=== PATIENT | female | born 1950 | race American Indian/Alaskan Native ===

== ENCOUNTER 2019-12-19 07:56 | Day surgery (SDC) | payer MEDICARE ==
[2019-12-19 09:00] VITALS: BP 130/82
[2019-12-19] MEDS ORDERED: SODIUM CHLORIDE 0.9% 500 ML 500 ML IV SCH (09:00)
[2019-12-19 09:14] LABS: Basophils # (Auto) 0.1 K/mm3 (0.0-0.1); Basophils % (Auto) 1.1 % (0.0-1.8); Eosinophils # (Auto) 0.1 K/mm3 (0.0-0.4); Eosinophils % (Auto) 2.6 % (0.0-4.3); Hematocrit 34.2 % (30.3-42.9); Hemoglobin 11.3 gm/dl (10.1-14.3); Lymphocytes # (Auto) 1.1 K/mm3 (1.2-5.4); Mean Corpuscular HGB Conc 33 % (30-34); Mean Corpuscular Volume 86 fl (79-97); Monocytes # (Auto) 0.4 K/mm3 (0.0-0.8); Monocytes % (Auto) 7.9 % (0.0-7.3); Platelet Count 163 K/mm3 (140-440); Red Blood Count 3.97 M/mm3 (3.65-5.03); Red Cell Distribution Width 22.1 % (13.2-15.2)
[2019-12-19 09:42] LABS: INR 0.93 (0.87-1.13)
[2019-12-19 09:43] LABS: Partial Thromboplastin Time 27.2 Sec. (24.2-36.6)
[2019-12-19 10:05] LABS: Calcium 8.8 mg/dL (8.4-10.2)
[2019-12-19] MEDS ORDERED: ONDANSETRON 4 MG/2 ML INJ IV PRN (12:08)
[2019-12-19] MEDS ORDERED: ACETAMINOPHEN 325 MG TAB PO PRN (12:08)
[2019-12-19] MEDS ORDERED: ALBUTEROL 2.5 MG/3 ML NEBU IH PRN (12:08)
--- NOTE | 2019-12-19 12:12 | Short Stay Summary ---
Short Stay Documentation Date of service: 12/19/19 Narrative H&P: 69 year old female with ESRD and breast cancer with port for chemotherapy no longer needs port. Plan for port removal. - History Principal diagnosis: Breast cancer, ESRD H&P: obtained from office - Allergies and Medications Current Medications: Allergies No Known Allergies Allergy (Unverified 12/19/19 08:47) Home Medications Medication Instructions Recorded Confirmed Last Taken Type Aspirin EC [Halfprin EC] 81 mg PO DAILY 12/19/19 12/19/19 12/18/19 History 81 mg Clopidogrel [Plavix] 75 mg PO DAILY 12/19/19 12/19/19 12/18/19 History 75 mg Labetalol 100mg TAB 100 mg PO DAILY 12/19/19 12/19/19 12/18/19 History 100 mg Metoprolol Succinate [Toprol Xl] 100 mg PO DAILY 12/19/19 12/19/19 12/18/19 History 100 mg Norvasc 10 mg PO DAILY 12/19/19 12/19/19 12/18/19 History 10 mg Pentoxifylline 400 mg PO DAILY 12/19/19 12/19/19 12/18/19 History 400 mg Active Medications Acetaminophen (Tylenol) 650 mg PO Q4H PRN PRN Reason: Pain MILD(1-3)/Fever >100.5/BECKWITH Albuterol (Proventil) 2.5 mg IH Q4HRT PRN PRN Reason: Shortness Of Breath Sodium Chloride (Nacl 0.9% 500 Ml) 500 mls @ 50 mls/hr IV DIRECT YEINFER Last Admin: 12/19/19 09:57 Dose: 50 mls/hr Documented by: Ondansetron HCl (Zofran) 4 mg IV Q8H PRN PRN Reason: Nausea And Vomiting Sodium Chloride (Sodium Chloride Flush Syringe 10 Ml) 10 ml IV BID YENIFER Sodium Chloride (Sodium Chloride Flush Syringe 10 Ml) 10 ml IV PRN PRN PRN Reason: LINE FLUSH - Physical exam General appearance: no acute distress Lungs: Normal air movement Gastrointestinal: normal - Hospital course Hospital course: K came back hemolyzed. K then came back k7.0. Then came back 6.4. Discussed with patient, Dr. Tidwell, and Dr. Huizar of hospitalist service and recommended inpatient dialysis. Patient does not want to become inpatient and discussed this with outpatient dialysis center who will perform dialysis on her. Discussed risks, benefits, and alternatives of inpatient vs outpatient dialysis with hyperkalemia. Patient wants to have outpatient dialysis. - Disposition Condition at discharge: Stable Disposition: DC-01 TO HOME OR SELFCARE - Discharge Diagnoses (1) Breast cancer Status: Acute (2) ESRD (end stage renal disease) Status: Acute Short Stay Discharge Plan Activity: advance as tolerated Weight Bearing Status: Weight Bear as Tolerated Diet: renal Follow up with: LIONEL TERRELL JR, MD [Primary Care Provider] - 7 Days
== END 2019-12-19 14:10 | disposition home or self-care (01) ==
LOC: CATHLABREC 07:56 → UNDOADMIN 12:01 → 4A 12:01 → CATHLABREC 14:10
PROVIDERS: ATTEND Radiology Diagnostic Radiology
DX: C50.919 Malignant neoplasm of unspecified site of unspecified female breast (principal); I12.0 Hypertensive chronic kidney disease with stage 5 chronic kidney disease or end stage renal disease; E11.22 Type 2 diabetes mellitus with diabetic chronic kidney disease; N18.6 End stage renal disease; I70.245 Atherosclerosis of native arteries of left leg with ulceration of other part of foot; Z53.8 Procedure and treatment not carried out for other reasons; I70.213 Atherosclerosis of native arteries of extremities with intermittent claudication, bilateral legs; Z87.891 Personal history of nicotine dependence; Z72.89 Other problems related to lifestyle; Z80.8 Family history of malignant neoplasm of other organs or systems; Z79.899 Other long term (current) drug therapy; Z79.82 Long term (current) use of aspirin; Z99.2 Dependence on renal dialysis; Z98.890 Other specified postprocedural states; Z82.49 Family history of ischemic heart disease and other diseases of the circulatory system
CPT/HCPCS: 36415; 80048; 84132; 85025; 85610; 85730; J7040

== ENCOUNTER 2019-12-19 12:08 | Observation (INO) | payer MEDICARE ==
[2019-12-19] MEDS ORDERED: ALBUTEROL 2.5 MG/3 ML NEBU IH PRN (12:16)
[2019-12-19] MEDS ORDERED: ONDANSETRON 4 MG/2 ML INJ IV PRN (12:16)
[2019-12-19] MEDS ORDERED: ACETAMINOPHEN 325 MG TAB PO PRN (12:16)
--- NOTE | 2019-12-19 20:57 | History and Physical Report ---
History of Present Illness Date of admission: 12/19/19 12:08 Chief complaint: Needing dialysis History of present illness: 69 YO Female with ESRD on HD, Colon Cancer, Breast Cancer presented to [facility] for elective surgical intervention. Patient found to have elevated potassium postoperatively. Patient placed in observation status and admitted to medical floor for urgent dialysis. Patient has fever, chills, chest pain, palpitation, productive cough, recent ill contacts, or known exposure to COVID-19. Past History Past Medical History: cancer, ESRD Past Surgical History: Other (Dialysis access) Social history: . denies: smoking, alcohol abuse, prescription drug abuse Family history: diabetes, hypertension Medications and Allergies Allergies Allergy/AdvReac Type Severity Reaction Status Date / Time No Known Allergies Allergy Unverified 12/19/19 08:47 Home Medications Medication Instructions Recorded Confirmed Last Taken Type Aspirin EC [Halfprin EC] 81 mg PO DAILY 12/19/19 12/19/19 12/18/19 History 81 mg Clopidogrel [Plavix] 75 mg PO DAILY 12/19/19 12/19/19 12/18/19 History 75 mg Labetalol 100mg TAB 100 mg PO DAILY 12/19/19 12/19/19 12/18/19 History 100 mg Metoprolol Succinate [Toprol Xl] 100 mg PO DAILY 12/19/19 12/19/19 12/18/19 History 100 mg Norvasc 10 mg PO DAILY 12/19/19 12/19/19 12/18/19 History 10 mg Pentoxifylline 400 mg PO DAILY 12/19/19 12/19/19 12/18/19 History 400 mg Review of Systems Constitutional: no weight loss, no weight gain, no fever, no sweats Ears, nose, mouth and throat: no ear pain, no tinnitis, no nasal congestion, no nasal discharge Breasts: no change in shape, no swelling, no mass Cardiovascular: no orthopnea, no rapid/irregular heart beat, no edema, no lightheadedness Respiratory: no cough, no cough with sputum, no hemoptysis, no dyspnea on exertion Gastrointestinal: no nausea, no vomiting, no diarrhea, no change in bowel habits, no hematemesis, no coffee ground emesis Genitourinary Female: no pelvic pain, no flank pain, no menorrhagia, no dysuria, no urinary frequency Rectal: no pain, no incontinence, no bleeding Musculoskeletal: no neck stiffness, no neck pain, no arm numbness/tingling Integumentary: no rash, no pruritis, no redness, no sores, no wounds Neurological: no head injury, no paralysis, no weakness, no parathesias, no numbness, no syncope Psychiatric: no anxiety, no memory loss, no sleep disturbances Endocrine: no cold intolerance, no polyphagia, no excessive thirst, no polydipsia, no polyuria Exam - Constitutional General appearance: Present: no acute distress, well-nourished - EENT Eyes: Present: PERRL ENT: hearing intact, clear oral mucosa - Neck Neck: Present: supple, normal ROM - Respiratory Respiratory effort: normal Respiratory: bilateral: CTA - Cardiovascular Heart Sounds: Present: S1 & S2. Absent: rub, click - Extremities Extremities: pulses symmetrical, No edema Peripheral Pulses: within normal limits - Abdominal General gastrointestinal: Present: soft, non-tender, non-distended, normal bowel sounds Female genitourinary: Present: normal - Integumentary Integumentary: Present: clear, warm, dry - Musculoskeletal Musculoskeletal: gait normal, strength equal bilaterally - Psychiatric Psychiatric: appropriate mood/affect, intact judgment & insight - Neurologic Neurologic: CNII-XII intact, moves all extremities Assessment and Plan - Patient Problems (1) ESRD (end stage renal disease) Status: Acute Plan to address problem: Nephrology team notified, patient placed in observation status. Dialysis as per renal team, strict I's/O, monitor urine output every shift, daily weight, avoid nephrotoxic agents, dialysis as per renal team (2) Breast cancer Status: Acute Plan to address problem: Outpatient oncology follow-up.
== END 2019-12-19 14:00 | disposition home or self-care (01) ==
LOC: 4A 12:08
PROVIDERS: ADMIT Internal Medicine; ATTEND Internal Medicine
DX: N18.6 End stage renal disease (principal); C50.919 Malignant neoplasm of unspecified site of unspecified female breast; Z85.038 Personal history of other malignant neoplasm of large intestine; Z99.2 Dependence on renal dialysis; Z79.899 Other long term (current) drug therapy
CPT/HCPCS: G0378; G0379; 36415; 80048; 84132; 85025; 85610; 85730; J7040

== ENCOUNTER 2020-01-03 06:43 | Day surgery (SDC) | payer MEDICARE ==
[2020-01-03 07:46] LABS: Basophils % (Auto) 0.7 % (0.0-1.8); Eosinophils # (Auto) 0.1 K/mm3 (0.0-0.4); Eosinophils % (Auto) 2.5 % (0.0-4.3); Hematocrit 33.2 % (30.3-42.9); Hemoglobin 10.7 gm/dl (10.1-14.3); Lymphocytes % (Auto) 19.7 % (13.4-35.0); Mean Corpuscular HGB Conc 32 % (30-34); Mean Corpuscular Volume 85 fl (79-97); Monocytes # (Auto) 0.5 K/mm3 (0.0-0.8); Monocytes % (Auto) 9.6 % (0.0-7.3); Platelet Count 148 K/mm3 (140-440); Red Blood Count 3.92 M/mm3 (3.65-5.03)
[2020-01-03 07:53] LABS: INR 1.02 (0.87-1.13)
[2020-01-03 07:54] LABS: Partial Thromboplastin Time 27.8 Sec. (24.2-36.6)
[2020-01-03 07:57] LABS: Calcium 8.3 mg/dL (8.4-10.2)
[2020-01-03] MEDS ORDERED: SODIUM CHLORIDE 0.9% 500 ML 500 ML IV SCH (08:00)
[2020-01-03 08:08] LABS: Red Cell Distribution Width 22.3 % (13.2-15.2)
[2020-01-03] MEDS: LIDOCAINE 1%/EPINEPHRINE 1:100,000 VIAL (20 ML) INFILTRATI ONE ×4 (10:06→11:20)
[2020-01-03] MEDS ORDERED: HEPARIN/NS 5000 UNIT/500ML 500 ML IR ONE (10:15)
[2020-01-03] MEDS: fentaNYL 100 MCG/2 ML INJ ONE ×3 (10:47→11:05)
[2020-01-03] MEDS: MIDAZOLAM 2 MG/2 ML INJ ONE ×3 (10:47→11:05)
--- NOTE | 2020-01-03 10:51 | Short Stay Summary ---
Short Stay Documentation Date of service: 01/03/20 Narrative H&P: 69-year-old female with right sided subclavian port placement for breast cancer with end-stage renal disease and critical limb ischemia on aspirin and Plavix. Antiplatelet therapy cannot be discontinued for port removal. - History Principal diagnosis: Breast cancer, ESRD H&P: obtained from office Past Medical History: cancer, dialysis Past Surgical History: mastectomy, Other (angioplasties) Social history: no significant social history - Allergies and Medications Current Medications: Allergies statins Allergy (Severe, Uncoded 01/03/20 07:10) Unknown kidney failure Home Medications Medication Instructions Recorded Confirmed Last Taken Type Aspirin EC [Halfprin EC] 81 mg PO DAILY 12/19/19 01/03/20 01/02/20 History 81 mg Clopidogrel [Plavix] 75 mg PO DAILY 12/19/19 01/03/20 01/02/20 History 75 mg Labetalol 100mg TAB 100 mg PO DAILY 12/19/19 01/03/20 01/02/20 History 100 mg Metoprolol Succinate [Toprol Xl] 100 mg PO DAILY 12/19/19 01/03/20 01/02/20 History 100 mg Pentoxifylline 400 mg PO DAILY 12/19/19 01/03/20 01/02/20 History 400 mg Active Medications Sodium Chloride (Nacl 0.9% 500 Ml) 500 mls @ 50 mls/hr IV DIRECT YENIFER Last Admin: 01/03/20 10:48 Dose: 100 mls Documented by: - Physical exam General appearance: no acute distress Lungs: Normal air movement Heart: Regular rate Gastrointestinal: normal - Brief post op/procedure progress note Date of procedure: 01/03/20 Pre-op diagnosis: Breast cancer Post-op diagnosis: same Procedure: Fluoroscopic guided right subclavian vein port removal Conscious sedation for 33 minutes Anesthesia: local (w/ conscious sedation) Surgeon: MARGARITA MURILLO Estimated blood loss: minimal Condition: stable - Hospital course Hospital course: Patient tolerated the procedure well. No immediate postprocedural complications. - Disposition Condition at discharge: Stable Disposition: DC-01 TO HOME OR SELFCARE - Discharge Diagnoses (1) Breast cancer Status: Acute (2) ESRD (end stage renal disease) Status: Acute Short Stay Discharge Plan Activity: advance as tolerated Weight Bearing Status: Weight Bear as Tolerated (Do not lift more than 10 pounds with the right arm for the next week) Diet: regular Wound: keep clean and dry (Do not get the area wet for the next week. Sponge baths. Steri-Strips will fall off on their own once the wound is allowed to get wet again.) Follow up with: LIONEL TERRELL JR, MD [Primary Care Provider] - 7 Days
[2020-01-03] MEDS ORDERED: ceFAZolin/Water 2 GM/20 ML 2 GM/20 ML SYRINGE IV ONE (10:57)
[2020-01-03] MEDS ORDERED: MIDAZOLAM 2 MG/2 ML INJ ONE (11:02)
[2020-01-03] MEDS ORDERED: fentaNYL 100 MCG/2 ML INJ ONE (11:02)
[2020-01-03 12:31] VITALS: BP 166/83
--- NOTE | 2020-01-03 12:38 | Operative Report ---
Operative Report Operative Report: EXAM: Right subclavian vein port removal under fluoroscopic guidance Conscious sedation monitoring for 33 minutes. DATE: 01/03/2020 APPLICATION SUPPORT CONSULTANT: MARGARITA MURILLO MD INDICATION: Breast cancer, end of therapy, no further need for port. End-stage renal disease. MEDICATIONS: Please see nursing report for full details. CONTRAST: None PROCEDURE: Following an explanation of the risks, benefits, and alternatives; written informed consent was obtained. The patient was brought to the angiography suite and placed in supine position on the examination table. Patient was sedated and this was performed with continuous nursing supervision and continuous cardiopulmonary monitoring. Area around the port was prepped and draped in a sterile fashion. The port site was then anesthetized with local anesthetic. 15 blade was used to make a 2.5 centimeter incision adjacent to the existing port healed incision. Curved hemostats were used to slowly separate the site and expose the port. As this was done, hemostasis was achieved with the use of compression and electrocautery. The port tubing was expose the tubing was clamped. The tubing was then freed and completely extracted under fluoroscopic guidance. Pressure was held at the prior venotomy sites after tubing removal until hemostasis was achieved. Securing sutures were cut and the port was then removed intact. The area was then evaluated and washed with sterile saline. Hemostasis was achieved with manual compression and electrocautery. The site was then closed in 2 layers with interrupted 3-0 Vicryl sutures and a running 4-0 Vicryl subcuticular suture. Dermabond was applied. Steri-Strips were applied. Sterile dressing was then applied. The patient tolerated the procedure well. There were no immediate postprocedural complications. FINDINGS: Successful removal of a right subclavian vein port. Alarm Service Technician radiograph demonstrates a intact port. Post procedural radiograph demonstrates successful port removal without residual tubing. IMPRESSION: Successful removal of a right subclavian vein port under fluoroscopic guidance.
== END 2020-01-03 13:15 | disposition home or self-care (01) ==
LOC: CATHLABREC 06:43
PROVIDERS: ATTEND Radiology Diagnostic Radiology
DX: Z45.2 Encounter for adjustment and management of vascular access device (principal); C50.919 Malignant neoplasm of unspecified site of unspecified female breast; I12.0 Hypertensive chronic kidney disease with stage 5 chronic kidney disease or end stage renal disease; E11.22 Type 2 diabetes mellitus with diabetic chronic kidney disease; N18.6 End stage renal disease; I70.245 Atherosclerosis of native arteries of left leg with ulceration of other part of foot; I70.213 Atherosclerosis of native arteries of extremities with intermittent claudication, bilateral legs; Z90.49 Acquired absence of other specified parts of digestive tract; Z98.890 Other specified postprocedural states; K21.9 Gastro-esophageal reflux disease without esophagitis; Z90.710 Acquired absence of both cervix and uterus; Z99.2 Dependence on renal dialysis
CPT/HCPCS: 36415; 36590; 77001; 80048; 85025; 85610; 85730; 99156; 99157; J0690; J1644; J2250; J3010; J7040

== ENCOUNTER 2020-10-16 19:41 | Inpatient (IN) | payer MEDICARE ==
--- NOTE | 2020-10-17 00:12 | XRay Report ---
CHEST 2 VIEWS INDICATION / CLINICAL INFORMATION: dyspnea. COMPARISON: None available. FINDINGS: SUPPORT DEVICES: None. HEART / MEDIASTINUM: Stable cardiomegaly LUNGS / PLEURA: Moderate increased interstitial/parenchymal disease with small left pleural effusion. No pneumothorax. ADDITIONAL FINDINGS: No significant additional findings. IMPRESSION: 1. Bilateral proximal/interstitial disease could represent CHF and/or pneumonia. Clinical correlation and follow-up chest x-ray recommended Signer Name: Marlon Christianson MD Signed: 10/17/2020 12:07 AM Workstation Name: [id number]
[2020-10-17 00:35] LABS: Hematocrit 26.7 % (30.3-42.9); Hemoglobin 8.5 gm/dl (10.1-14.3); Mean Corpuscular HGB Conc 32 % (30-34); Mean Corpuscular Volume 86 fl (79-97); Platelet Count 157 K/mm3 (140-440); Red Blood Count 3.11 M/mm3 (3.65-5.03)
[2020-10-17 00:47] LABS: INR 1.23 (0.87-1.13)
[2020-10-17 01:06] LABS: Red Cell Distribution Width 28.2 % (13.2-15.2)
[2020-10-17 01:12] LABS: Calcium 9.6 mg/dL (8.4-10.2)
--- NOTE | 2020-10-17 01:53 | Emergency Department Report ---
ED General Adult HPI - General Chief complaint: Medical Clearance Stated complaint: MISSED DIALYSIS PUI?: Yes Time Seen by Provider: 10/17/20 01:52 Source: patient, RN notes reviewed, old records reviewed Mode of arrival: Ambulatory Limitations: Altered Mental Status, Physical Limitation - History of Present Illness Initial comments: The patient was evaluated in the emergency department for symptoms described in the history of present illness. He/she was evaluated in the context of the global COVID-19 pandemic, which necessitated consideration that the patient might be at risk for infection with the virus that causes COVID-19. Institutional protocols and algorithms that pertain to the evaluation of patients at risk for COVID-19 are in a state of rapid change based on information released by regulatory bodies including the CDC and federal and state organizations. These policies and algorithms were followed during the patient's care in the emergency department. Please note that these policies, procedures and recommendations changed on a rapid basis. During the entire history and physical examination, I had on complete personal protective equipment. Nephrology: Dr. Tidwell The patient is a 69-year-old female. According to enclosed paperwork, she was diagnosed with COVID-19 at the end of August. Apparently she has been hospitalized at a few institutions (not certain which institutions), and has subsequently missed a few dialysis sessions. As per her manager cardiology Dr. Tidwell, the patient has been confused, and was referred to the emergency room for evaluation for need for hemodialysis, as well as for confusion. The patient denies physical pain. She is not sure of the day. She thinks she is due for dialysis today. She denies headache, neck pain, chest pain, abdominal pain. She has chronic shortness of breath. She denies urinary symptoms. She denies vomiting blood or defecating blood. Patient is somewhat confused and disorganized, and is a poor historian, has difficulty describing the qualitative nature of her symptoms, exacerbating factors, relieving factors or aggravating factors. Her last known well time is not explicitly known at this time -: unknown - Related Data Home Medications Medication Instructions Recorded Confirmed Last Taken Aspirin EC [Halfprin EC] 81 mg PO DAILY 12/19/19 01/03/20 01/02/20 81 mg Clopidogrel [Plavix] 75 mg PO DAILY 12/19/19 01/03/20 01/02/20 75 mg Labetalol 100mg TAB 100 mg PO DAILY 12/19/19 01/03/20 01/02/20 100 mg Metoprolol Succinate [Toprol Xl] 100 mg PO DAILY 12/19/19 01/03/20 01/02/20 100 mg Pentoxifylline 400 mg PO DAILY 12/19/19 01/03/20 01/02/20 400 mg Allergies Allergy/AdvReac Type Severity Reaction Status Date / Time statins Allergy Severe Unknown Uncoded 10/16/20 22:30 ED Review of Systems ROS: Stated complaint: MISSED DIALYSIS Other details as noted in HPI Comment: Unobtainable due to pts medical conditions Constitutional: weakness Respiratory: shortness of breath Cardiovascular: denies: chest pain Gastrointestinal: denies: abdominal pain Neurological: confusion ED Past Medical Hx - Past Medical History Previous Medical History?: Yes Hx Hypertension: Yes Hx Diabetes: Yes Hx GERD: Yes Hx Renal Disease: Yes - Surgical History Past Surgical History?: Yes Hx Cholecystectomy: Yes Hx Breast Surgery: Yes Additional Surgical History: Right Arm Fistula - Social History Smoking Status: Never Smoker Substance Use Type: None - Medications Home Medications: Home Medications Medication Instructions Recorded Confirmed Last Taken Type Aspirin EC [Halfprin EC] 81 mg PO DAILY 12/19/19 01/03/20 01/02/20 History 81 mg Clopidogrel [Plavix] 75 mg PO DAILY 12/19/19 01/03/20 01/02/20 History 75 mg Labetalol 100mg TAB 100 mg PO DAILY 12/19/19 01/03/20 01/02/20 History 100 mg Metoprolol Succinate [Toprol Xl] 100 mg PO DAILY 12/19/19 01/03/20 01/02/20 History 100 mg Pentoxifylline 400 mg PO DAILY 12/19/19 01/03/20 01/02/20 History 400 mg ED Physical Exam - General Limitations: Altered Mental Status General appearance: in no apparent distress - Head Head exam: Present: atraumatic, normocephalic - Eye Eye exam: Present: normal appearance, EOMI. Absent: nystagmus - ENT ENT exam: Present: normal exam, normal orophraynx, mucous membranes moist, normal external ear exam - Neck Neck exam: Present: normal inspection, full ROM. Absent: tenderness, meningismus - Respiratory Respiratory exam: Present: other (Pulmonary auscultation not performed secondary to lack of disposable stethoscope). Absent: stridor - Cardiovascular Cardiovascular Exam: Present: tachycardia (Noted on nuisance wildlife trapper), other (Cardiac auscultation not performed secondary to lack of disposable stethoscope) - GI/Abdominal GI/Abdominal exam: Present: soft. Absent: distended, tenderness, guarding, rebound, rigid, pulsatile mass - Extremities Exam Extremities exam: Present: normal inspection (Right upper extremity fistula noted, appropriate thrill, no tenderness, without redness, pus or streaking), full ROM, pedal edema (1-2+ edema in the bilateral lower extremities), other (2+ pulses noted in the bilateral upper and lower extremities. There is no palpable cord. negative Homans sign. Muscular compartments are soft. The pelvis is stable.). Absent: calf tenderness - Back Exam Back exam: Present: normal inspection, full ROM. Absent: tenderness, CVA tenderness (R), CVA tenderness (L), paraspinal tenderness, vertebral tenderness - Neurological Exam Neurological exam: Present: altered (Patient is awake to name. She knows that she is in the hospital. She does not know the day of the week), other (No fa cial droop. Tongue midline. Extraocular movements intact bilaterally. Facial sensation intact to light touch in V1, V2, V3 distribution bilaterally. 5 and a 5 strength in 4 extremities. Sensation intact to light touch in 4 extremities.) - Psychiatric Psychiatric exam: Present: anxious - Skin Skin exam: Present: warm, dry, intact, normal color. Absent: rash ED Course Vital Signs 10/16/20 10/17/20 10/17/20 22:25 04:24 05:09 Temperature 98.2 F Pulse Rate 114 H 109 H Pulse Rate [ 92 H Bilateral Throughout] Respiratory 18 17 Rate Respiratory 16 Rate [Bilateral Throughout] Blood Pressure Blood Pressure 105/63 129/75 [Left] O2 Sat by Pulse 95 99 Oximetry O2 Sat by Pulse Oximetry [ Bilateral Throughout] 10/17/20 10/17/20 10/17/20 05:12 06:10 09:17 Temperature Pulse Rate 109 H 98 H 99 H Pulse Rate [ Bilateral Throughout] Respiratory 17 19 Rate Respiratory Rate [Bilateral Throughout] Blood Pressure 128/87 Blood Pressure 107/69 134/77 [Left] O2 Sat by Pulse 97 99 Oximetry O2 Sat by Pulse Oximetry [ Bilateral Throughout] 08/18/21 08/18/21 08/18/21 12:08 12:12 12:30 Temperature 97.9 F Pulse Rate 94 H 108 H 108 H Pulse Rate [ Bilateral Throughout] Respiratory 30 H Rate Respiratory Rate [Bilateral Throughout] Blood Pressure 105/69 132/77 151/89 Blood Pressure [Left] O2 Sat by Pulse Oximetry O2 Sat by Pulse 98 Oximetry [ Bilateral Throughout] 10/17/20 10/17/20 10/17/20 12:31 12:41 12:45 Temperature Pulse Rate 108 H Pulse Rate [ Bilateral Throughout] Respiratory Rate Respiratory Rate [Bilateral Throughout] Blood Pressure 132/77 151/89 157/79 Blood Pressure [Left] O2 Sat by Pulse 96 95 Oximetry O2 Sat by Pulse Oximetry [ Bilateral Throughout] 10/17/20 10/17/20 10/17/20 12:51 13:00 13:01 Temperature Pulse Rate 109 H 112 H Pulse Rate [ Bilateral Throughout] Respiratory 17 Rate Respiratory Rate [Bilateral Throughout] Blood Pressure 157/79 148/79 148/79 Blood Pressure [Left] O2 Sat by Pulse 94 97 Oximetry O2 Sat by Pulse Oximetry [ Bilateral Throughout] 10/17/20 10/17/20 10/17/20 13:11 13:15 13:21 Temperature Pulse Rate 123 H 111 H 113 H Pulse Rate [ Bilateral Throughout] Respiratory 18 13 Rate Respiratory Rate [Bilateral Throughout] Blood Pressure 124/79 124/79 124/79 Blood Pressure [Left] O2 Sat by Pulse 95 97 Oximetry O2 Sat by Pulse Oximetry [ Bilateral Throughout] 10/17/20 10/17/20 10/17/20 13:24 13:30 13:31 Temperature Pulse Rate 102 H 110 H 113 H Pulse Rate [ Bilateral Throughout] Respiratory 19 22 Rate Respiratory Rate [Bilateral Throughout] Blood Pressure 135/87 135/87 Blood Pressure 135/87 [Left] O2 Sat by Pulse 96 94 Oximetry O2 Sat by Pulse Oximetry [ Bilateral Throughout] 10/17/20 10/17/20 10/17/20 13:41 13:45 13:51 Temperature Pulse Rate 110 H 114 H 116 H Pulse Rate [ Bilateral Throughout] Respiratory 23 20 Rate Respiratory Rate [Bilateral Throughout] Blood Pressure 135/87 159/86 135/87 Blood Pressure [Left] O2 Sat by Pulse 94 95 Oximetry O2 Sat by Pulse Oximetry [ Bilateral Throughout] 10/17/20 10/17/20 10/17/20 14:00 14:01 14:11 Temperature Pulse Rate 110 H 127 H 114 H Pulse Rate [ Bilateral Throughout] Respiratory 18 18 Rate Respiratory Rate [Bilateral Throughout] Blood Pressure 138/108 159/86 138/108 Blood Pressure [Left] O2 Sat by Pulse 95 94 Oximetry O2 Sat by Pulse Oximetry [ Bilateral Throughout] 10/17/20 10/17/20 10/17/20 14:15 14:21 14:30 Temperature Pulse Rate 114 H 113 H 113 H Pulse Rate [ Bilateral Throughout] Respiratory 21 Rate Respiratory Rate [Bilateral Throughout] Blood Pressure 151/103 138/108 135/107 Blood Pressure [Left] O2 Sat by Pulse 96 Oximetry O2 Sat by Pulse Oximetry [ Bilateral Throughout] 10/17/20 10/17/20 10/17/20 14:31 14:41 14:45 Temperature Pulse Rate 119 H 115 H 107 H Pulse Rate [ Bilateral Throughout] Respiratory 18 22 Rate Respiratory Rate [Bilateral Throughout] Blood Pressure 151/123 135/107 147/91 Blood Pressure [Left] O2 Sat by Pulse 96 Oximetry O2 Sat by Pulse Oximetry [ Bilateral Throughout] 10/17/20 10/17/20 10/17/20 14:51 15:00 15:02 Temperature 98.9 F Pulse Rate 113 H 119 H 116 H Pulse Rate [ Bilateral Throughout] Respiratory 15 20 Rate Respiratory Rate [Bilateral Throughout] Blood Pressure 147/91 157/101 157/101 Blood Pressure 157/101 [Left] O2 Sat by Pulse 96 Oximetry O2 Sat by Pulse Oximetry [ Bilateral Throughout] 10/17/20 10/17/20 10/17/20 15:10 15:21 15:25 Temperature 98.3 F Pulse Rate 124 H 113 H 105 H Pulse Rate [ Bilateral Throughout] Respiratory 20 13 18 Rate Respiratory Rate [Bilateral Throughout] Blood Pressure 157/101 157/97 119/61 Blood Pressure [Left] O2 Sat by Pulse 99 100 Oximetry O2 Sat by Pulse 98 Oximetry [ Bilateral Throughout] 10/17/20 10/17/20 10/17/20 15:31 15:41 15:51 Temperature Pulse Rate 121 H 116 H 118 H Pulse Rate [ Bilateral Throughout] Respiratory 19 18 17 Rate Respiratory Rate [Bilateral Throughout] Blood Pressure 119/61 125/78 125/78 Blood Pressure [Left] O2 Sat by Pulse 97 99 99 Oximetry O2 Sat by Pulse Oximetry [ Bilateral Throughout] 10/17/20 10/17/20 10/17/20 16:01 16:11 16:21 Temperature Pulse Rate 121 H 110 H 116 H Pulse Rate [ Bilateral Throughout] Respiratory 22 17 27 H Rate Respiratory Rate [Bilateral Throughout] Blood Pressure 129/79 132/81 132/81 Blood Pressure [Left] O2 Sat by Pulse 98 98 Oximetry O2 Sat by Pulse Oximetry [ Bilateral Throughout] 10/17/20 10/17/20 10/17/20 16:31 16:41 16:51 Temperature Pulse Rate 122 H 122 H Pulse Rate [ Bilateral Throughout] Respiratory 24 19 13 Rate Respiratory Rate [Bilateral Throughout] Blood Pressure 146/100 146/100 146/100 Blood Pressure [Left] O2 Sat by Pulse 100 95 Oximetry O2 Sat by Pulse Oximetry [ Bilateral Throughout] 10/17/20 10/17/20 10/17/20 17:01 17:11 17:20 Temperature Pulse Rate 120 H 117 H 116 H Pulse Rate [ Bilateral Throughout] Respiratory 21 16 15 Rate Respiratory Rate [Bilateral Throughout] Blood Pressure 122/95 119/69 119/69 Blood Pressure [Left] O2 Sat by Pulse 96 94 93 Oximetry O2 Sat by Pulse Oximetry [ Bilateral Throughout] - Reevaluation(s) Reevaluation #1: 10/17/20 04:27 Frontal diagnosis, including but not limited to: Pneumonia, urinary tract infec tion, COVID-19, azotemia, uremia, metabolic acidosis Assessment and plan: 69-year-old female with multiple acute issues. She is not received dialysis for a few days. Her potassium is over 6, she has azotemia, uremia and metabolic acidosis. She will be treated medically for her hyperkalemia. Contacted her manager cardiology, Dr. Tidwell, discussed history, physical, laboratory studies and imaging studies. He will arrange for dialysis in the morning. He agrees with the plan of care. She has a known diagnosis of COVID-19 from the end of August. Start on steroids, antibiotics empirically. Placed on isolation. Obtain CT scan of the brain, and appropriate laboratory studies to further evaluate encephalopathy. Also found to be in A. fib with RVR. Unknown if this is old or new. Start on unfractionated heparin, start on oral diltiazem, and give IV push x1. Reassess after diltiazem has been administered. Hospital physician, Dr. Ryan Quach to admit to [facility] Medical decision m[age]-year-old female with confusion, A. fib and RVR, last known well time is not known, COVID-19, pneumonia on x-ray, with hyperkalemia, azotemia, uremia, metabolic acidosis and encephalopathy, requires admission to the medical service for urgent hemodialysis, medical optimization for numerous acute and subacute medical conditions. 10/17/20 04:43 Elevated troponin is likely a type II troponin leak. 10/17/20 05:30 After 30 mg of diltiazem orally, and 10 mg intravenously, heart rate 95 to 105 bpm. Given end-stage renal disease, concern for COVID-19, 30 cc/kg bolus IV fluid contraindicated, especially given that patient does have some evidence of congestive heart failure on x-ray the chest. In addition, Covid patients may develop acute respiratory distress syndrome, and are typically ill served by aggressive fluid bolus. I will defer fluid management to the inpatient team, in my opinion, the patient has evidence of mild fluid overload, so we will withhold fluids at this time. Lactic acid of 3.0 reviewed and appreciated, I suspect that this is a type II lactic acidosis. ED Medical Decision Making - Lab Data Result diagrams: 10/19/20 04:51 10/19/20 04:51 Lab Results 10/16/20 10/16/20 10/16/20 Range/Units 23:58 23:58 23:58 WBC 3.5 L (4.5-11.0) K/mm3 RBC 3.11 L (3.65-5.03) M/mm3 Hgb 8.5 L (10.1-14.3) gm/dl Hct 26.7 L (30.3-42.9) % MCV 86 (79-97) fl MCH 27 L (28-32) pg MCHC 32 (30-34) % RDW 28.2 H (13.2-15.2) % Plt Count 157 (140-440) K/mm3 PT 16.1 H (12.2-14.9) Sec. INR 1.23 H (0.87-1.13) Sodium 144 (137-145) mmol/L Potassium 6.3 H* (3.6-5.0) mmol/L Chloride 99.2 (98-107) mmol/L Carbon Dioxide 26 (22-30) mmol/L Anion Gap 25 mmol/L BUN 73 H (7-17) mg/dL Creatinine 12.2 H (0.6-1.2) mg/dL Estimated GFR 4 ml/min BUN/Creatinine Ratio 6 % Glucose 187 H (65-100) mg/dL Calcium 9.6 (8.4-10.2) mg/dL Total Creatine Kinase 57 (30-135) units/L Troponin T 0.162 H* (0.00-0.029) ng/mL Vital Signs 10/16/20 22:25 Temperature 98.2 F Pulse Rate 114 H Respiratory 18 Rate Blood Pressure 105/63 [Left] O2 Sat by Pulse 95 Oximetry - EKG Data -: EKG Interpreted by [place] Rate: tachycardia - EKG Data 10/17/20 04:22 EKG interpreted at 03: 2 6 A. fib, rate 107 bpm. Normal axis, QTC prolonged, poor R wave progression. Abnormal EKG, not a STEMI, no prior for comparison at this time - Radiology Data Radiology results: report reviewed, image reviewed CHEST 2 VIEWS INDICATION / CLINICAL INFORMATION: dyspnea. COMPARISON: None available. FINDINGS: SUPPORT DEVICES: None. HEART / MEDIASTINUM: Stable cardiomegaly LUNGS / PLEURA: Moderate increased interstitial/parenchymal disease with small left pleural effusion. No pneumothorax. ADDITIONAL FINDINGS: No significant additional findings. IMPRESSION: 1. Bilateral proximal/interstitial disease could represent CHF and/or pneumonia. Clinical correlation and follow- up chest x-ray recommended Signer Name: Marlon Christianson MD Signed: 10/16/2020 11:07 PM [facility] [address] [place] [address] Cat Scan Report Signed Patient: RED NEGRON MR#: [id number] : 1950 Acct:[id number] Age/Sex: 69 / F ADM Date: 10/16/20 Loc: ED Attending Dr: Ordering Physician: DARIAN STEEL MD Date of Service: 10/17/20 Procedure(s): CT head/brain wo con Accession Number(s): [id number] cc: DARIAN STEEL MD CT HEAD WITHOUT CONTRAST INDICATION / CLINICAL INFORMATION: ams. TECHNIQUE: All CT scans at this location are performed using CT dose reduction for ALARA by means of automated exposure control. COMPARISON: None available. FINDINGS: HEMORRHAGE: None. EXTRA-AXIAL SPACES: Normal in size and morphology for the patient's age. VENTRICULAR SYSTEM: Normal in size and morphology for the patient's age. CEREBRAL PARENCHYMA: Mild to moderate periventricular and deep microangiopathy. Mild cerebral atrophy No significant abnormality. No acute territorial infarct. MIDLINE SHIFT OR HERNIATION: None. CEREBELLUM / BRAINSTEM: No significant abnormality. ORBITS: Normal as visualized. SOFT TISSUES of HEAD: No significant abnormality. CALVARIUM: No significant abnormality. PARANASAL SINUSES / MASTOID AIR CELLS: Normal as visualized. ADDITIONAL FINDINGS: Moderate vascular calcifications both cavernous carotid and vertebral arteries IMPRESSION: 1. No acute intracranial abnormality. 2. Mild microangiopathy and cerebral atrophy. Signer Name: Marlon Christianson MD Signed: 10/17/2020 3:22 AM Workstation Name: [id number] Transcribed By: TL Dictated By: Marlon Christianson MD Electronically Authenticated By: Marlon Christianson MD Signed Date/Time: 10/17/20321 DD/ 9 Critical Care Time: Yes Critical care time in (mins) excluding proc time.: 45 Critical care attestation.: If time is entered above; I have spent that time in minutes in the direct care of this critically ill patient, excluding procedure time. 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
[2020-10-17] MEDS ORDERED: SODIUM BICARB 8.4% 50 MEQ/50 ML SYRINGE IV ONE (02:01)
[2020-10-17] MEDS ORDERED: ALBUTEROL 2.5 MG/3 ML NEBU IH ONE (02:01)
[2020-10-17] MEDS ORDERED: DEXTROSE 50% IN WATER (25GM) 50 ML VIAL IV PRN (02:01)
[2020-10-17] MEDS ORDERED: INSULIN REGULAR, HUMAN 100 UNITS/1 ML IV ONE (02:01)
[2020-10-17] MEDS ORDERED: dexAMETHasone 4 MG/ML VIAL IV ONE (02:01)
[2020-10-17] MEDS ORDERED: DEXTROSE 50% IN WATER (25GM) 50 ML SYRINGE IV ONE (02:01)
[2020-10-17] MEDS ORDERED: cefTRIAXone/NS 1 GM/50 ML 1 GM/50 ML BAG IV ONE (02:01)
[2020-10-17] MEDS ORDERED: AZITHROMYCIN 250 MG TAB PO ONE (02:02)
[2020-10-17 02:51] LABS: Chol/HDL Ratio 2.89 %
--- NOTE | 2020-10-17 03:26 | Cat Scan Report ---
CT HEAD WITHOUT CONTRAST INDICATION / CLINICAL INFORMATION: ams. TECHNIQUE: All CT scans at this location are performed using CT dose reduction for ALARA by means of automated e xposure control. COMPARISON: None available. FINDINGS: HEMORRHAGE: None. EXTRA-AXIAL SPACES: Normal in size and morphology for the patient's age. VENTRICULAR SYSTEM: Normal in size and morphology for the patient's age. CEREBRAL PARENCHYMA: Mild to moderate periventricular and deep microangiopathy. Mild cerebral atrophy No significant abnormality. No acute territorial infarct. MIDLINE SHIFT OR HERNIATION: None. CEREBELLUM / BRAINSTEM: No significant abnormality. ORBITS: Normal as visualized. SOFT TISSUES of HEAD: No significant abnormality. CALVARIUM: No significant abnormality. PARANASAL SINUSES / MASTOID AIR CELLS: Normal as visualized. ADDITIONAL FINDINGS: Moderate vascular calcifications both cavernous carotid and vertebral arteries IMPRESSION: 1. No acute intracranial abnormality. 2. Mild microangiopathy and cerebral atrophy. Signer Name: Marlon Christianson MD Signed: 10/17/2020 3:22 AM Workstation Name: [id number]
[2020-10-17] MEDS ORDERED: SODIUM CHLORIDE 0.9% 100 ML IV PRN (03:32)
[2020-10-17] MEDS ORDERED: dilTIAZem 25 MG/5 ML INJ IV ONE (04:25)
[2020-10-17] MEDS ORDERED: dilTIAZem 30 MG TAB PO ONE (04:25)
[2020-10-17] MEDS ORDERED: HEPARIN 10,000 UNITS/10 ML VIAL IV PRN (04:25)
[2020-10-17] MEDS ORDERED: HEPARIN 10,000 UNITS/10 ML VIAL IV ONE (04:25)
[2020-10-17] MEDS ORDERED: ACETAMINOPHEN 325 MG TAB PO PRN (04:41)
[2020-10-17] MEDS ORDERED: ONDANSETRON 4 MG/2 ML INJ IV PRN (04:41)
[2020-10-17] MEDS ORDERED: MORPHINE 2 MG/1 ML INJ IV PRN (04:54)
[2020-10-17] MEDS ORDERED: MAGNESIUM HYDROXIDE (MOM) ORAL LIQD UDC PO PRN (04:54)
[2020-10-17] MEDS ORDERED: MORPHINE 4 MG/1 ML INJ IV PRN (04:54)
[2020-10-17] MEDS ORDERED: HEPARIN/ 0.45% NACL DRIP 25,000 UNIT/500 ML BAG IV SCH (05:00)
--- NOTE | 2020-10-17 05:05 | History and Physical Report ---
History of Present Illness Date of examination: 10/17/20 Date of admission: 10/17/2020 Chief complaint: Shortness of Breath History of present illness: 69-year-old -Armenian female with known history of end-stage renal disease on dialysis presents to the emergency room today with confusion. She was recently diagnosed with COVID-19 at the end of August and had been hospitalized at an outside facility and therefore missed some of her dialysis sessions. She was referred to the emergency room for evaluation of her confusion. Patient states that she feels she due for dialysis today. She denies any headache or dizziness, no diaphoresis, no nausea vomiting and no diarrhea. She has chronic shortness of breath, denies any cough, denies any hematuria or dysu kaylen, no bright red blood per rectum. Work-up in the emergency room today labs were significant for hyperkalemia of 6.3, lactic acid of 3.0, troponin of 0.162 and a BNP of 70,000. Patient was given insulin and glucose, calcium gluconate, albuterol sodium bicarb. For his hyperkalemia. Checks x-ray reveals bilateral proximal/interstitial disease which could represent CHF and or pneumonia. He developed left atrial fibrillation in the ER and was subsequently started on heparin drip and also given Cardizem injection. Terrazzo Tile Maker has been consulted by the ER physician for possible dialysis. Patient has been admitted with acute encephalopathy, hyperkalemia, end-stage renal disease needing dialysis, CHF versus pneumonia. Past History Past Medical History: diabetes, GERD, hypertension, renal failure Past Surgical History: cholecystectomy, Other (Right arm AV fistula placement, breast surgery) Social history: no significant social history Family history: no significant family history Medications and Allergies Allergies Allergy/AdvReac Type Severity Reaction Status Date / Time statins Allergy Severe Unknown Uncoded 10/16/20 22:30 Home Medications Medication Instructions Recorded Confirmed Last Taken Type Aspirin EC [Halfprin EC] 81 mg PO DAILY 12/19/19 01/03/20 01/02/20 History 81 mg Clopidogrel [Plavix] 75 mg PO DAILY 12/19/19 01/03/20 01/02/20 History 75 mg Labetalol 100mg TAB 100 mg PO DAILY 12/19/19 01/03/20 01/02/20 History 100 mg Metoprolol Succinate [Toprol Xl] 100 mg PO DAILY 12/19/19 01/03/2020 History 100 mg Pentoxifylline 400 mg PO DAILY 12/19/19 01/03/20 01/02/20 History 400 mg Active Meds: Active Medications Acetaminophen (Acetaminophen 325 Mg Tab) 650 mg PO Q4H PRN PRN Reason: Pain MILD(1-3)/Fever >100.5/BECKWITH Dextrose (Dextrose 50% In Water (25gm) 50 Ml Vial) 50 gm IV Q30MIN PRN; Hari col PRN Reason: Hypoglycemia Heparin Sodium (Porcine) (Heparin 10,000 Units/10 Ml Vial) 2,900 unit 40 unit/kg (2900 unit) IV Q6H PRN PRN Reason: Anti-Xa Assay < 0.1 units/ml Sodium Chloride (Nacl 0.9%) 100 mls @ 999 mls/hr IV ROSHNI PRN PRN Reason: Hypotension Heparin Sodium/Sodium Chloride (Heparin/ 0.45% Nacl-25,000 Unit/500 Ml) 25,000 unit in 500 mls @ 21 mls/hr IV TITR YENIFER; Protocol Ceftriaxone Sodium (Rocephin/Ns 2 Gm/100 Ml) 2 gm in 100 mls @ 200 mls/hr IV Q24H YENIFER; Protocol Azithromycin (Zithromax/Ns) 500 mg in 250 mls @ 250 mls/hr IV Q24H YENIFER; Protocol Magnesium Hydroxide (Magnesium Hydroxide (Mom) Oral Liqd Udc) 30 ml PO Q4H PRN PRN Reason: Constipation Morphine Sulfate (Morphine 2 Mg/1 Ml Inj) 2 mg IV Q4H PRN PRN Reason: Pain, Moderate (4-6) Morphine Sulfate (Morphine 4 Mg/1 Ml Inj) 4 mg IV Q4H PRN PRN Reason: Pain , Severe (7-10) Ondansetron HCl (Ondansetron 4 Mg/2 Ml Inj) 4 mg IV Q8H PRN PRN Reason: Nausea And Vomiting Sodium Chloride (Sodium Chloride 0.9% 10 Ml Flush Syringe) 10 ml IV BID YENIFER Sodium Chloride (Sodium Chloride 0.9% 10 Ml Flush Syringe) 10 ml IV PRN PRN PRN Reason: LINE FLUSH Review of Systems Constitutional: no fever, no chills Ears, nose, mouth and throat: no nasal congestion, no sore throat Cardiovascular: no chest pain, no palpitations Respiratory: shortness of breath, no cough Gastrointestinal: no abdominal pain, no nausea, no vomiting, no diarrhea Genitourinary Female: no pelvic pain, no flank pain, no hematuria Musculoskeletal: no neck pain, no low back pain Integumentary: no rash, no pruritis Neurological: confusion, no headaches Psychiatric: no anxiety, no depression Endocrine: no polydipsia, no polyuria, no nocturia Exam - Constitutional Vitals: Temp Pulse Resp BP Pulse Ox 98.2 F 109 H 17 129/75 99 10/16/20 22:25 10/17/20 04:24 10/17/20 04:24 10/17/20 04:24 10/17/20 04:24 General appearance: Present: no acute distress, well-nourished - EENT Eyes: Present: PERRL, EOM intact. Absent: scleral icterus ENT: hearing intact, clear oral mucosa, dentition normal - Neck Neck: Present: supple, normal ROM - Respiratory Respiratory effort: normal Respiratory: bilateral: rales - Cardiovascular Rhythm: irregularly irregular Heart Sounds: Present: S1 & S2. Absent: systolic murmur, diastolic murmur, rub, click - Extremities Extremities: no ischemia, pulses intact, pulses symmetrical, No edema, normal temperature, normal color, Full ROM Peripheral Pulses: within normal limits - Abdominal General gastrointestinal: Present: soft, non-tender, non-distended, normal bowel sounds. Absent: mass - Integumentary Integumentary: Present: clear, warm, dry - Musculoskeletal Musculoskeletal: strength equal bilaterally, other (Right upper arm AV fistula in place) - Psychiatric Psychiatric: appropriate mood/affect, intact judgment & insight, memory intact, cooperative - Neurologic Neurologic: CNII-XII intact, no focal deficits, moves all extremities HEART Score - HEART Score Troponin: Troponin T 0.162 ng/mL (0.00-0.029) H* 10/16/20 23:58 Results - Labs CBC & Chem 7: 10/16/20 23:58 10/16/20 23:58 Labs: Abnormal lab results 10/16/20 10/16/20 10/16/20 Range/Units 23:58 23:58 23:58 WBC 3.5 L (4.5-11.0) K/mm3 RBC 3.11 L (3.65-5.03) M/mm3 Hgb 8.5 L (10.1-14.3) gm/dl Hct 26.7 L (30.3-42.9) % MCH 27 L (28-32) pg RDW 28.2 H (13.2-15.2) % PT 16.1 H (12.2-14.9) Sec. INR 1.23 H (0.87-1.13) Potassium 6.3 H* (3.6-5.0) mmol/L BUN 73 H (7-17) mg/dL Creatinine 12.2 H (0.6-1.2) mg/dL Glucose 187 H (65-100) mg/dL POC Glucose (70-105) mg/dL Lactic Acid (0.7-2.0) mmol/L Troponin T 0.162 H* (0.00-0.029) ng/mL NT-Pro-B Natriuret Pep 79653 H (0-900) pg/mL LDL Cholesterol Direct 39 L (50-130) mg/dL HDL Cholesterol 37 L (40-59) mg/dL Salicylates (2.8-20.0) mg/dL Acetaminophen (10.0-30.0) ug/mL 10/17/20 10/17/20 10/17/20 Range/Units 02:48 03:50 03:50 WBC (4.5-11.0) K/mm3 RBC (3.65-5.03) M/mm3 Hgb (10.1-14.3) gm/dl Hct (30.3-42.9) % MCH (28-32) pg RDW (13.2-15.2) % PT (12.2-14.9) Sec. INR (0.87-1.13) Potassium (3.6-5.0) mmol/L BUN (7-17) mg/dL Creatinine (0.6-1.2) mg/dL Glucose (65-100) mg/dL POC Glucose 169 H (70-105) mg/dL Lactic Acid 3.00 H* (0.7-2.0) mmol/L Troponin T (0.00-0.029) ng/mL NT-Pro-B Natriuret Pep (0-900) pg/mL LDL Cholesterol Direct (50-130) mg/dL HDL Cholesterol (40-59) mg/dL Salicylates < 0.3 L (2.8-20.0) mg/dL Acetaminophen (10.0-30.0) ug/mL 10/17/20 Range/Units 03:50 WBC (4.5-11.0) K/mm3 RBC (3.65-5.03) M/mm3 Hgb (10.1-14.3) gm/dl Hct (30.3-42.9) % MCH (28-32) pg RDW (13.2-15.2) % PT (12.2-14.9) Sec. INR (0.87-1.13) Potassium (3.6-5.0) mmol/L BUN (7-17) mg/dL Creatinine (0.6-1.2) mg/dL Glucose (65-100) mg/dL POC Glucose (70-105) mg/dL Lactic Acid (0.7-2.0) mmol/L Troponin T (0.00-0.029) ng/mL NT-Pro-B Natriuret Pep (0-900) pg/mL LDL Cholesterol Direct (50-130) mg/dL HDL Cholesterol (40-59) mg/dL Salicylates (2.8-20.0) mg/dL Acetaminophen 5.0 L (10.0-30.0) ug/mL Assessment and Plan - Patient Problems (1) Acute encephalopathy Current Visit: Yes Status: Acute Plan to address problem: Etiology unclear. Possibly secondary to underlying infection versus uremia. Will monitor mental status. Patient has been started on empiric IV antibiotics and also will be scheduled for dialysis. (2) End-stage renal disease needing dialysis Current Visit: Yes Status: Acute Plan to address problem: Consult placed to nephrology for dialysis. (3) Atrial fibrillation with RVR Current Visit: Yes Status: Acute Plan to address problem: New onset. Patient placed on heparin drip. She has had a dose of IV Cardizem in the ER. Will monitor EKG. We will also schedule for echocardiogram. (4) Hyperkalemia Current Visit: Yes Status: Acute Plan to address problem: Patient has received insulin and glucose, albuterol, sodium bicarb We will monitor EKG and also monitor potassium levels. (5) DVT prophylaxis Current Visit: Yes Status: Acute Plan to address problem: Patient currently on anticoagulation with heparin (6) Full code status Current Visit: Yes Status: Acute Plan to address problem: Patient is full code.
--- NOTE | 2020-10-17 12:39 | Progress Note ---
Assessment and Plan Assessment and plan: -- Acute toxic metabolic encephalopathy/present on admission Current Visit: Yes Status: Acute Multifactorial, due to uremia, missed hemodialysis, fluid overload Electrolyte abnormalities like hyperkalemia Treat the underlying cause -- Hyperkalemia K6.3 on admission Current Visit: Yes Status: Acute Patient has received insulin and glucose, albuterol, sodium bicarb We will monitor EKG and also monitor potassium levels. Potassium level significantly improved --End-stage renal disease needing dialysis Current Visit: Yes Status: Acute Nephrology following Dialysis per schedule --Atrial fibrillation with RVR Current Visit: Yes Status: Acute New onset. Cardizem Heparin drip, will transition to Eliquis Follow, echocardiogram Cardiology consult if needed -- DVT prophylaxis Current Visit: Yes Status: Acute On heparin drip --Full code status Current Visit: Yes Status: Acute Patient is full code. Closely monitor the patient and adjust management as needed Plan of care reviewed with the patient and her nurse Bench Manager recommendations noted and appreciated Possible discharge in 1 to 2 days if stable History Interval history: I have seen and examined the patient at bedside today in ER awaiting bed assignment Patient's chart and medications reviewed Admitted with missed hemodialysis Patient is receiving dialysis at the bedside PUI, in isolation Awaiting COVID-19 test Vital signs noted Hospitalist Physical - Constitutional Vitals: Temp Pulse Resp BP Pulse Ox 98.2 F 108 H 19 151/89 99 10/16/20 22:25 10/17/20 12:30 10/17/20 09:17 10/17/20 12:30 10/17/20 09:17 General appearance: Present: no acute distress, well-nourished - EENT Eyes: Present: PERRL, EOM intact - Neck Neck: Present: supple, normal ROM - Respiratory Respiratory effort: normal Respiratory: bilateral: diminished, rales, negative: rhonchi, wheezing - Cardiovascular Rhythm: regular Heart Sounds: Present: S1 & S2 - Extremities Extremities: no ischemia, No edema - Abdominal General gastrointestinal: soft, non-tender, non-distended, normal bowel sounds - Integumentary Integumentary: Present: clear, warm - Psychiatric Psychiatric: appropriate mood/affect, cooperative, other (Confused at times) - Neurologic Neurologic: CNII-XII intact, moves all extremities HEART Score - HEART Score Troponin: Troponin T 0.162 ng/mL (0.00-0.029) H* 10/16/20 23:58 Results - Labs CBC & Chem 7: 10/16/20 23:58 10/17/20 15:46 Labs: Laboratory Last Values WBC 3.5 K/mm3 (4.5-11.0) L 10/16/20 23:58 RBC 3.11 M/mm3 (3.65-5.03) L 10/16/20 23:58 Hgb 8.5 gm/dl (10.1-14.3) L 10/16/20 23:58 Hct 26.7 % (30.3-42.9) L 10/16/20 23:58 MCV 86 fl (79-97) 10/16/20 23:58 MCH 27 pg (28-32) L 10/16/20 23:58 MCHC 32 % (30-34) 10/16/20 23:58 RDW 28.2 % (13.2-15.2) H 10/16/20 23:58 Plt Count 157 K/mm3 (140-440) 10/16/20 23:58 PT 16.1 Sec. (12.2-14.9) H 10/16/20 23:58 INR 1.23 (0.87-1.13) H 10/16/20 23:58 Sodium 144 mmol/L (137-145) 10/16/20 23:58 Potassium 6.3 mmol/L (3.6-5.0) H* 10/16/20 23:58 Chloride 99.2 mmol/L (98-107) 10/16/20 23:58 Carbon Dioxide 26 mmol/L (22-30) 10/16/20 23:58 Anion Gap 25 mmol/L 10/16/20 23:58 BUN 73 mg/dL (7-17) H 10/16/20 23:58 Creatinine 12.2 mg/dL (0.6-1.2) H 10/16/20 23:58 Estimated GFR 4 ml/min 10/16/20 23:58 BUN/Creatinine Ratio 6 % 10/16/20 23:58 Glucose 187 mg/dL (65-100) H 10/16/20 23:58 POC Glucose 169 mg/dL (70-105) H 10/17/20 02:48 Lactic Acid 3.00 mmol/L (0.7-2.0) H* 10/17/20 03:50 Calcium 9.6 mg/dL (8.4-10.2) 10/16/20 23:58 Total Creatine Kinase 57 units/L (30-135) 10/16/20 23:58 Troponin T 0.162 ng/mL (0.00-0.029) H* 10/16/20 23:58 NT-Pro-B Natriuret Pep 87141 pg/mL (0-900) H 10/16/20 23:58 Triglycerides 146 mg/dL (2-149) 10/16/20 23:58 Cholesterol 107 mg/dL (50-199) 10/16/20 23:58 LDL Cholesterol Direct 39 mg/dL (50-130) L 10/16/20 23:58 HDL Cholesterol 37 mg/dL (40-59) L 10/16/20 23:58 Cholesterol/HDL Ratio 2.89 % 10/16/20 23:58 TSH 2.940 mlU/mL (0.270-4.200) 10/17/20 03:50 Salicylates < 0.3 mg/dL (2.8-20.0) L 10/17/20 03:50 Acetaminophen 5.0 ug/mL (10.0-30.0) L 10/17/20 03:50 Microbiology: Microbiology 10/17/20 03:50 Peripheral/Venous Blood Culture - Preliminary Culture in Progress 10/17/20 03:43 Peripheral/Venous Blood Culture - Preliminary Culture in Progress Active Medications - Current Medications Current Medications: Generic Name Dose Route Start Last Admin Trade Name Jose Cruzq PRN Reason Stop Dose Admin Acetaminophen 650 mg 10/17/20 04:41 Acetaminophen 325 Mg Tab PO Q4H PRN Pain MILD(1-3)/Fever >100.5/BECKWITH Dextrose 50 gm 10/17/20 02:01 Dextrose 50% In Water (25gm) 50 Ml Vial IV Q30MIN PRN Hypoglycemia Protocol Heparin Sodium (Porcine) 2,900 unit 10/17/20 04:25 Heparin 10,000 Units/10 Ml Vial 40 unit/kg (2900 unit) IV Q6H PRN Anti-Xa Assay < 0.1 units/ml Sodium Chloride 100 mls @ 999 mls/hr 10/17/20 03:32 Nacl 0.9% IV ROSHNI PRN Hypotension Heparin Sodium/Sodium Chloride 25,000 unit in 500 mls @ 21 mls/hr 10/17/20 05:00 10/17/20 05:54 Heparin/ 0.45% Nacl-25,000 Unit/500 Ml IV 1,050 units/hr TITR YENIFER 21 mls/hr Administration Protocol 1,050 UNITS/HR Ceftriaxone Sodium 2 gm in 100 mls @ 200 mls/hr 10/17/20 22:00 Rocephin/Ns 2 Gm/100 Ml IV 10/20/20 22:29 QHS [facility] Protocol Azithromycin 500 mg in 250 mls @ 250 mls/hr 10/17/20 22:00 Zithromax/Ns IV 10/20/20 22:59 QHS [facility] Protocol Magnesium Hydroxide 30 ml 10/17/20 04:54 Magnesium Hydroxide (Mom) Oral Liqd Udc PO Q4H PRN Constipation Morphine Sulfate 2 mg 10/17/20 04:54 Morphine 2 Mg/1 Ml Inj IV Q4H PRN Pain, Moderate (4-6) Morphine Sulfate 4 mg 10/17/20 04:54 Morphine 4 Mg/1 Ml Inj IV Q4H PRN Pain , Severe (7-10) Ondansetron HCl 4 mg 10/17/20 04:41 Ondansetron 4 Mg/2 Ml Inj IV Q8H PRN Nausea And Vomiting Sodium Chloride 10 ml 10/17/20 10:00 10/17/20 09:42 Sodium Chloride 0.9% 10 Ml Flush Syringe IV 10 ml BID YENIFER Administration Sodium Chloride 10 ml 10/17/20 04:41 Sodium Chloride 0.9% 10 Ml Flush Syringe IV PRN PRN LINE FLUSH
--- NOTE | 2020-10-17 13:23 | Electrocardiograph Report ---
[facility] Test Date: 2020-10-17 Test Time: 03:26:38 Pat Name: RED NEGRON Department: Room: [place] [address] Gender: F Truck Driver Heavy: NURSE : 1950 Requested By: DARIAN STEEL Order Number: [id number] Reading MD: Elisabet Bauer Measurements Intervals [place] Rate: 107 P: AK: QRS: 49 QRSD: 87 T: 101 QT: 353 QTc: 472 Interpretive Statements Atrial fibrillation Low voltage, extremity leads Nonspecific T abnormalities, lateral leads No previous ECG available for comparison Electronically Signed On 10-17-2020 13:22:44 EDT by Elisabet Bauer
[2020-10-17 16:22] LABS: Calcium 9.7 mg/dL (8.4-10.2)
[2020-10-17 16:38] LABS: Hepatitis C Virus Antibody Non-Reactive (NonReactive)
[2020-10-17 16:45] LABS: Hepatitis B Surface Antigen Nonreactive (Negative)
--- NOTE | 2020-10-17 17:22 | Consultation ---
History of Present Illness - Reason for Consult Consult date: 10/17/20 end stage renal disease, hyperkalemia Requesting physician: DARIAN STEEL - History of Present Illness 69-year-old lady who is well known to me with a history of end-stage renal disease presumably secondary to diabetic nephropathy/hypertensive nephrosclerosis. Patient is on hemodialysis on a Thursday, Thursday and Thursday schedule at [facility].she was recently diagnosed with breast cancer and is being evaluated for mastectomy at the [facility] [place]. Patient was diagnosed with Covid 19 one year at the end of August. She was hospitalized twice on account of this. She has been having episodic confusion and was unable to keep the mask on at dialysis and so was unable to get dialysis at the outpatient clinic. Her called our office and patient was referred to the ER for further evaluation. Potassium was high at 6.3 mmol/L and patient is admitted for further management. She was also noted to be short of breath. She was found to be in atrial fibrillation with rapid ventricular rate. I am consulted to assist with management. Patient is a poor historian and she is still confused. Past History Past Medical History: cancer (history of left breast cancerstatus post mastectomy, radiation and chemotherapy. Now diagnosed with right breast cancer), diabetes, GERD, hypertension, renal failure Past Surgical History: cholecystectomy, hysterectomy, mastectomy (left), Other (Right arm AV fistula placement,PD catheter placement, PD catheter removal, kidney biopsy in 2016 left breast surgery reconstruction) Social history: , lives with family (lives with ), other (retired RN). denies: smoking (quit smoking a few months ago), alcohol abuse, prescription drug abuse, IV drug use Family history: cancer (Father of lung cancer at age 68 mother of liver cancer) Medications and Allergies Allergies Allergy/AdvReac Type Severity Reaction Status Date / Time statins Allergy Severe Unknown Uncoded 10/16/20 22:30 Home Medications Medication Instructions Recorded Confirmed Last Taken Type Aspirin EC [Halfprin EC] 81 mg PO DAILY 12/19/19 01/03/20 01/02/20 History 81 mg Clopidogrel [Plavix] 75 mg PO DAILY 12/19/19 01/03/20 01/02/20 History 75 mg Labetalol 100mg TAB 100 mg PO DAILY 12/19/19 01/03/20 01/02/20 History 100 mg Metoprolol Succinate [Toprol Xl] 100 mg PO DAILY 12/19/19 01/03/20 01/02/20 History 100 mg Pentoxifylline 400 mg PO DAILY 12/19/19 01/03/20 01/02/20 History 400 mg Active Meds: Active Medications Acetaminophen (Acetaminophen 325 Mg Tab) 650 mg PO Q4H PRN PRN Reason: Pain MILD(1-3)/Fever >100.5/BECKWITH Dextrose (Dextrose 50% In Water (25gm) 50 Ml Vial) 50 gm IV Q30MIN PRN; Protocol PRN Reason: Hypoglycemia Heparin Sodium (Porcine) (Heparin 10,000 Units/10 Ml Vial) 2,900 unit 40 unit/kg (2900 unit) IV Q6H PRN PRN Reason: Anti-Xa Assay < 0.1 units/ml Sodium Chloride (Nacl 0.9%) 100 mls @ 999 mls/hr IV ROSHNI PRN PRN Reason: Hypotension Heparin Sodium/Sodium Chloride (Heparin/ 0.45% Nacl-25,000 Unit/500 Ml) 25,000 unit in 500 mls @ 21 mls/hr IV TITR YENIFER; Protocol Last Titration: 10/17/20 15:04 Dose: 0 units/hr, 0 mls/hr Documented by: Ceftriaxone Sodium (Rocephin/Ns 2 Gm/100 Ml) 2 gm in 100 mls @ 200 mls/hr IV QHS YENIFER; Protocol Stop: 10/20/20 22:29 Azithromycin (Zithromax/Ns) 500 mg in 250 mls @ 250 mls/hr IV QHS YENIFER; Protocol Stop: 10/20/20 22:59 Magnesium Hydroxide (Magnesium Hydroxide (Mom) Oral Liqd Udc) 30 ml PO Q4H PRN PRN Reason: Constipation Morphine Sulfate (Morphine 2 Mg/1 Ml Inj) 2 mg IV Q4H PRN PRN Reason: Pain, Moderate (4-6) Morphine Sulfate (Morphine 4 Mg/1 Ml Inj) 4 mg IV Q4H PRN PRN Reason: Pain , Severe (7-10) Ondansetron HCl (Ondansetron 4 Mg/2 Ml Inj) 4 mg IV Q8H PRN PRN Reason: Nausea And Vomiting Sodium Chloride (Sodium Chloride 0.9% 10 Ml Flush Syringe) 10 ml IV BID YENIFER Last Admin: 10/17/20 09:42 Dose: 10 ml Documented by: Sodium Chloride (Sodium Chloride 0.9% 10 Ml Flush Syringe) 10 ml IV PRN PRN PRN Reason: LINE FLUSH Review of Systems All systems: negative (limited to decrease exposure of clinician during the Covid 19 pandemic) Exam - Vital Signs Vital signs: Vital Signs Temp Pulse Resp BP Pulse Ox 98.2 F 114 H 18 105/63 95 10/16/20 22:25 10/16/20 22:25 10/16/20 22:25 10/16/20 22:25 10/16/20 22:25 - Physical Exam Narrative exam: elderly Afro-Maltese female lying in bed in no acute distressat rest HEENT: Normocephalic atraumatic, pupils equal round reactive to light Neck: Supple, no venous distention, no goiter CVS: S1S2 irregular No murmur, No rub or gallop Lungs: Clear to auscultation, no use of accessory muscles of respiration Abdomen: Full, soft, nontender, no organomegaly no bruit, bowel sounds are present Extremities: No edema, no cyanosis or clubbing Urinary: Deferred Musculo-skeletal: No joint deformities or swelling Neuro: Awake, confused conversation, no focal deficits Results - Lab Results 10/16/20 23:58 10/17/20 15:46 Most recent lab results Calcium 9.7 mg/dL (8.4-10.2) 10/17/20 15:46 Assessment and Plan - Patient Problems (1) Hyperkalemia Current Visit: Yes Status: Acute Plan to address problem: secondary to missed dialysis treatments. Follow-up potassium postdialysis. (2) Acute encephalopathy Current Visit: Yes Status: Acute Plan to address problem: ? Brain fogging related to COVID 19.? related to uremia. CT head was negative. Patient receive dialysis early this morning. Will dialyze again tomorrow and reevaluate. (3) Atrial fibrillation with RVR Current Visit: Yes Status: Acute Plan to address problem: started on anticoagulation and Cardizem. Continue management by primary attending. (4) End-stage renal disease needing dialysis Current Visit: Yes Status: Acute Plan to address problem: increased azotemia secondary to missed dialysis. Patient was dialyzed early this morning. We will dialyze again tomorrow and reevaluate. (5) COVID-19 virus infection Current Visit: Yes Status: Acute Plan to address problem: Patient has had Covid 19 for at least 3 weeks at the time of presentation. PCR is still positive. Patient on dexamethasone. Continue management by primary attending (6) Breast cancer Current Visit: No Status: Acute Plan to address problem: recently diagnosed. Follow up with oncologist as an outpatient. (7) Anemia in chronic kidney disease (CKD) Current Visit: Yes Status: Acute Plan to address problem: continue erythropoietin on dialysis and follow-up hemoglobin (8) Type 2 diabetes mellitus with diabetic chronic kidney disease Current Visit: Yes Status: Acute Plan to address problem: blood sugar management by primary attending.
[2020-10-18] MEDS: cefTRIAXone/NS 2 GM/100 ML 2 GM/100 ML BAG IV SCH (04:04)
[2020-10-18] MEDS: AZITHROMYCIN/NS 500 MG/250 ML 500 MG/250 ML BAG IV SCH (04:05)
[2020-10-18] MEDS ORDERED: AZITHROMYCIN 250 MG TAB PO ONE (04:46)
[2020-10-18] MEDS ORDERED: LIDOCAINE-MPF (1%) 10 MG/1 ML VIAL 5 ML INFILTRATI ONE (04:47)
[2020-10-18 06:25] LABS: Hematocrit 25.5 % (30.3-42.9); Mean Corpuscular HGB Conc 31 % (30-34); Mean Corpuscular Volume 86 fl (79-97); Platelet Count 189 K/mm3 (140-440); Red Blood Count 2.97 M/mm3 (3.65-5.03)
[2020-10-18 06:27] LABS: Red Cell Distribution Width 28.3 % (13.2-15.2)
[2020-10-18 06:39] LABS: Calcium 10.3 mg/dL (8.4-10.2)
--- NOTE | 2020-10-18 08:08 | Progress Note ---
Assessment and Plan - Patient Problems (1) Hyperkalemia Current Visit: Yes Status: Acute Plan to address problem: Hyperkalemia secondary to missed dialysis treatments. Potassium improved postdialysis. (2) Acute encephalopathy Current Visit: Yes Status: Acute Plan to address problem: ? Brain fogging related to COVID 19.? related to uremia. CT head was negative. Patient receive dialysis yesterday. We will dialyze again today and then reevaluate. (3) Atrial fibrillation with RVR Current Visit: Yes Status: Acute Plan to address problem: started on anticoagulation and Cardizem. Rate now controlled. Continue management by primary attending. (4) End-stage renal disease needing dialysis Current Visit: Yes Status: Acute Plan to address problem: increased azotemia secondary to missed dialysis. Patient was dialyzed early this morning. We will dialyze again tomorrow and reevaluate. (5) COVID-19 virus infection Current Visit: Yes Status: Acute Plan to address problem: Patient has had Covid 19 for at least 3 weeks at the time of presentation. PCR is still positive. Patient on dexamethasone. Continue management by primary attending (6) Breast cancer Current Visit: No Status: Acute Plan to address problem: recently diagnosed. Follow up with oncologist as an outpatient. (7) Anemia in chronic kidney disease (CKD) Current Visit: Yes Status: Acute Plan to address problem: continue erythropoietin on dialysis and follow-up hemoglobin (8) Type 2 diabetes mellitus with diabetic chronic kidney disease Current Visit: Yes Status: Acute Plan to address problem: blood sugar management by primary attending. 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 I reviewed multidisciplinary notes and discussed with staff and physicians as needed. Objective - Exam Narrative Exam: Patient was not examined at the bedside today due to personal protective equipment preservation during the COVID-19 pandemic - Vital Signs Vital signs: Vital Signs - 12hr 10/17/20 10/17/20 10/17/20 20:11 20:21 20:31 Temperature Pulse Rate 84 Respiratory 21 Rate Blood Pressure 125/93 145/92 116/92 O2 Sat by Pulse 98 98 94 Oximetry 0810/17/20 10/17/20 20:41 20:51 21:01 Temperature Pulse Rate 81 77 76 Respiratory 20 15 14 Rate Blood Pressure 121/79 125/93 127/76 O2 Sat by Pulse 95 97 97 Oximetry 10/17/20 10/17/20 10/17/20 21:11 21:21 21:30 Temperature Pulse Rate 78 75 Respiratory 18 15 Rate Blood Pressure 136/93 136/93 136/93 O2 Sat by Pulse 95 94 96 Oximetry 10/17/20 10/17/20 10/17/20 21:41 21:51 22:01 Temperature Pulse Rate 73 70 Respiratory 14 12 Rate Blood Pressure O2 Sat by Pulse 95 95 95 Oximetry 10/17/20 10/17/20 10/17/20 22:11 22:21 22:31 Temperature Pulse Rate 66 69 71 Respiratory 24 21 15 Rate Blood Pressure 136/93 136/93 O2 Sat by Pulse 96 94 94 Oximetry 10/17/20 10/18/20 22:41 04:21 Temperature 97.8 F Pulse Rate 69 118 H Respiratory 15 18 Rate Blood Pressure 136/93 123/78 O2 Sat by Pulse 97 96 Oximetry - Lab 10/19/20 04:51 10/19/20 04:51 Most recent lab results Calcium 10.3 mg/dL (8.4-10.2) H 10/18/20 05:06 Medications & Allergies - Medications Allergies/Adverse Reactions: Allergies statins Allergy (Severe, Uncoded 10/16/20 22:30) Unknown kidney failure Home Medications: Home Medications Medication Instructions Recorded Confirmed Last Taken Type Aspirin EC [Halfprin EC] 81 mg PO DAILY 12/19/19 01/03/20 01/02/20 History 81 mg Clopidogrel [Plavix] 75 mg PO DAILY 12/19/19 01/03/20 01/02/20 History 75 mg Labetalol 100mg TAB 100 mg PO DAILY 12/19/19 01/03/20 01/02/20 History 100 mg Metoprolol Succinate [Toprol Xl] 100 mg PO DAILY 12/19/19 01/03/20 01/02/20 History 100 mg Pentoxifylline 400 mg PO DAILY 12/19/19 01/03/20 01/02/20 History 400 mg Active Medications: Generic Name Dose Route Start Last Admin Trade Name Freq PRN Reason Stop Dose Admin Acetaminophen 650 mg 10/17/20 04:41 Acetaminophen 325 Mg Tab PO Q4H PRN Pain MILD(1-3)/Fever >100.5/BECKWITH Aspirin 81 mg 10/18/20 10:00 Aspirin Ec 81 Mg Tab PO DAILY [facility] Dextrose 50 gm 10/17/20 02:01 Dextrose 50% In Water (25gm) 50 Ml Vial IV Q30MIN PRN Hypoglycemia Protocol Heparin Sodium (Porcine) 2,900 unit 10/17/20 04:25 Heparin 10,000 Units/10 Ml Vial 40 unit/kg (2900 unit) IV Q6H PRN Anti-Xa Assay < 0.1 units/ml Sodium Chloride 100 mls @ 999 mls/hr 10/17/20 03:32 Nacl 0.9% IV ROSHNI PRN Hypotension Heparin Sodium/Sodium Chloride 25,000 unit in 500 mls @ 21 mls/hr 10/17/20 05:00 10/17/20 15:04 Heparin/ 0.45% Nacl-25,000 Unit/500 Ml IV 0 units/hr TITR YENIFER 0 mls/hr Titration Protocol 1,050 UNITS/HR Ceftriaxone Sodium 2 gm in 100 mls @ 200 mls/hr 10/17/20 22:00 10/18/20 04:04 Rocephin/Ns 2 Gm/100 Ml IV 10/20/20 22:29 [facility] Azith[facility] 500 mg in 250 mls @ 250 mls/hr 10/17/20 22:00 10/18/20 04:05 Zithromax/Ns IV 10/20/20 22:59 [facility] Protocol Magnesium Hydroxide 30 ml 10/17/20 04:54 Magnesium Hydroxide (Mom) Oral Liqd Udc PO Q4H PRN Constipation Metoprolol Succinate 100 mg 10/18/20 10:00 Metoprolol Succinate Xl 100 Mg Tab PO DAILY [facility] Morphine Sulfate 2 mg 10/17/20 04:54 Morphine 2 Mg/1 Ml Inj IV Q4H PRN Pain, Moderate (4-6) Morphine Sulfate 4 mg 10/17/20 04:54 Morphine 4 Mg/1 Ml Inj IV Q4H PRN Pain , Severe (7-10) Ondansetron HCl 4 mg 10/17/20 04:41 Ondansetron 4 Mg/2 Ml Inj IV Q8H PRN Nausea And Vomiting Sodium Chloride 10 ml 10/17/20 10:00 08/19/21 04:04 Sodium Chloride 0.9% 10 Ml Flush Syringe IV Not Given BID YENIFER Sodium Chloride 10 ml 10/17/20 04:41 Sodium Chloride 0.9% 10 Ml Flush Syringe IV PRN PRN LINE FLUSH
[2020-10-18 08:21] LABS: Total Cells Counted 100
[2020-10-18 08:23] LABS: Anisocytosis 3+; Ovalocytes 2+; Target Cells 1+; Tear Drop Cells 1+
[2020-10-18 08:24] LABS: Hypochromasia 1+; Platelet Estimate Consistent w Auto; Poikilocytosis 2+
[2020-10-18] MEDS: METOPROLOL SUCCINATE XL 100 MG TAB PO SCH (09:30)
[2020-10-18] MEDS: ASPIRIN EC 81 MG TAB PO SCH (09:30)
--- NOTE | 2020-10-18 10:26 | Progress Note ---
Assessment and Plan Assessment and plan: --COVID-19 positive; Droplet and contact isolation, inflammatory markers, no indication for remdesivir, prone positioning Home O2 evaluation at discharge. ID consulted --Possible bilateral pneumonia; empiric antibiotics Rocephin and Zithromax. Check procalcitonin Supportive care, follow cultures --Elevated D-dimers On heparin drip, transition to Eliquis Try to get CTA chest followed by HD coordinating with gaming surveillance observer, As well as lower extremity venous Doppler to rule out DVT -- Acute toxic metabolic encephalopathy/present on admission Current Visit: Yes Status: Acute Multifactorial, due to uremia, missed hemodialysis, fluid overload. Electrolyte abnormalities like hyperkalemia Treat the underlying cause -- Hyperkalemia K6.3 on admission Current Visit: Yes Status: Acute Patient has received insulin and glucose, albuterol, sodium bicarb We will monitor EKG and also monitor potassium levels. Potassium level significantly improved --End-stage renal disease needing dialysis Current Visit: Yes Status: Acute Nephrology following Dialysis per schedule --Atrial fibrillation with RVR Current Visit: Yes Status: Acute New onset. Cardizem On Heparin drip, will transition to Eliquis today Follow, echocardiogram Cardiology consult if needed -- DVT prophylaxis Current Visit: Yes Status: Acute Transition to Eliquis --Full code status Current Visit: Yes Status: Acute Patient is full code. Closely monitor the patient and adjust management as needed Plan of care reviewed with the patient and her nurse Information Coder recommendations noted and appreciated 10/18/2020; COVID-19 positive, new onset A. fib on beta-blockers, heparin changed to Eliquis Elevated D-dimers, on Eliquis, ESRD on hemodialysis per schedule Follow ID, renal, cardiology evaluation recommendations History Interval history: I have seen and examined the patient at the bedside this morning Isolation precautions PPE protocols strictly followed during evaluation per COVID-19 guidelines Patient is on heparin drip due to very high D-dimers high suspicion for DVT PE Will transition heparin drip to renal dose of Lovenox Patient complains of generalized weakness Receiving hemodialysis per schedule Vital signs noted Hospitalist Physical - Constitutional Vitals: Temp Pulse Resp BP Pulse Ox 97.8 F 112 H 19 115/74 95 10/18/20 09:35 10/18/20 09:35 10/18/20 09:35 10/18/20 09:35 10/18/20 09:35 General appearance: Present: no acute distress, well-nourished - EENT Eyes: Present: PERRL, EOM intact - Neck Neck: Present: supple, normal ROM - Respiratory Respiratory effort: normal Respiratory: bilateral: diminished, negative: rales, rhonchi, wheezing - Cardiovascular Rhythm: regular Heart Sounds: Present: S1 & S2 - Extremities Extremities: no ischemia, No edema - Abdominal General gastrointestinal: soft, non-tender, non-distended, normal bowel sounds - Integumentary Integumentary: Present: clear, warm - Psychiatric Psychiatric: appropriate mood/affect, cooperative - Neurologic Neurologic: CNII-XII intact, moves all extremities HEART Score - HEART Score Troponin: Troponin T 0.162 ng/mL (0.00-0.029) H* 10/16/20 23:58 Results - Labs CBC & Chem 7: 10/18/20 05:06 10/18/20 05:06 Labs: Laboratory Last Values WBC 4.3 K/mm3 (4.5-11.0) L 10/18/20 05:06 RBC 2.97 M/mm3 (3.65-5.03) L 10/18/20 05:06 Hgb 8.0 gm/dl (10.1-14.3) L 10/18/20 05:06 Hct 25.5 % (30.3-42.9) L 10/18/20 05:06 MCV 86 fl (79-97) 10/18/20 05:06 MCH 27 pg (28-32) L 10/18/20 05:06 MCHC 31 % (30-34) 10/18/20 05:06 RDW 28.3 % (13.2-15.2) H 10/18/20 05:06 Plt Count 189 K/mm3 (140-440) 10/18/20 05:06 Add Manual Diff Complete 10/18/20 05:06 Total Counted 100 10/18/20 05:06 Seg Neuts % (Manual) 83.0 % (40.0-70.0) H 10/18/20 05:06 Lymphocytes % (Manual) 12.0 % (13.4-35.0) L 10/18/20 05:06 Monocytes % (Manual) 5.0 % (0.0-7.3) 10/18/20 05:06 Nucleated RBC % Not Reportable 10/18/20 05:06 Seg Neutrophils # Man 3.6 K/mm3 (1.8-7.7) 10/18/20 05:06 Band Neutrophils # 0.0 K/mm3 10/18/20 05:06 Lymphocytes # (Manual) 0.5 K/mm3 (1.2-5.4) L 10/18/20 05:06 Abs React Lymphs (Man) 0.0 K/mm3 10/18/20 05:06 Monocytes # (Manual) 0.2 K/mm3 (0.0-0.8) 10/18/20 05:06 Eosinophils # (Manual) 0.0 K/mm3 (0.0-0.4) 10/18/20 05:06 Basophils # (Manual) 0.0 K/mm3 (0.0-0.1) 10/18/20 05:06 Metamyelocytes # 0.0 K/mm3 10/18/20 05:06 Myelocytes # 0.0 K/mm3 10/18/20 05:06 Promyelocytes # 0.0 K/mm3 10/18/20 05:06 Blast Cells # 0.0 K/mm3 10/18/20 05:06 WBC Morphology Not Reportable 10/18/20 05:06 Hypersegmented Neuts Not Reportable 10/18/20 05:06 Hyposegmented Neuts Not Reportable 10/18/20 05:06 Hypogranular Neuts Not Reportable 10/18/20 05:06 Smudge Cells Not Reportable 10/18/20 05:06 Toxic Granulation Not Reportable 10/18/20 05:06 Toxic Vacuolation Not Reportable 10/18/20 05:06 Dohle Bodies Not Reportable 10/18/20 05:06 Pelger-Huet Anomaly Not Reportable 10/18/20 05:06 Yane Rods Not Reportable 10/18/20 05:06 Platelet Estimate Consistent w auto 10/18/20 05:06 Clumped Platelets Not Reportable 10/18/20 05:06 Plt Clumps, EDTA Not Reportable 10/18/20 05:06 Large Platelets Not Reportable 10/18/20 05:06 Giant Platelets Not Reportable 10/18/20 05:06 Platelet Satelliting Not Reportable 10/18/20 05:06 Plt Morphology Comment Not Reportable 10/18/20 05:06 RBC Morphology Not Reportable 10/18/20 05:06 Dimorphic RBCs Not Reportable 10/18/20 05:06 Polychromasia Not Reportable 10/18/20 05:06 Hypochromasia 1+ 10/18/20 05:06 Poikilocytosis 2+ 10/18/20 05:06 Anisocytosis 3+ 10/18/20 05:06 Microcytosis Not Reportable 10/18/20 05:06 Macrocytosis Not Reportable 10/18/20 05:06 Spherocytes Not Reportable 10/18/20 05:06 Pappenheimer Bodies Not Reportable 10/18/20 05:06 Sickle Cells Not Reportable 10/18/20 05:06 Target Cells 1+ 10/18/20 05:06 Tear Drop Cells 1+ 10/18/20 05:06 Ovalocytes 2+ 10/18/20 05:06 Helmet Cells Not Reportable 10/18/20 05:06 [place] Bodies Not Reportable 10/18/20 05:06 [place] Rings Not Reportable 10/18/20 05:06 [place] Cells Not Reportable 10/18/20 05:06 Bite Cells Not Reportable 10/18/20 05:06 Crenated Cell Not Reportable 10/18/20 05:06 Elliptocytes Not Reportable 10/18/20 05:06 Acanthocytes (Spur) Not Reportable 10/18/20 05:06 Rouleaux Not Reportable 10/18/20 05:06 Hemoglobin C Crystals Not Reportable 10/18/20 05:06 Schistocytes Not Reportable 10/18/20 05:06 Malaria parasites Not Reportable 10/18/20 05:06 [place] Bodies Not Reportable 10/18/20 05:06 Hem Pathologist Commnt No 10/18/20 05:06 PT 16.1 Sec. (12.2-14.9) H 10/16/20 23:58 INR 1.23 (0.87-1.13) H 10/16/20 23:58 Heparin Anti-Xa Level 0.49 U.I./ml (0.3-0.7) 10/17/20 12:00 Sodium 139 mmol/L (137-145) 10/18/20 05:06 Potassium 5.2 mmol/L (3.6-5.0) H 10/18/20 05:06 Chloride 96.7 mmol/L (98-107) L 10/18/20 05:06 Carbon Dioxide 27 mmol/L (22-30) 10/18/20 05:06 Anion Gap 21 mmol/L 10/18/20 05:06 BUN 48 mg/dL (7-17) H 10/18/20 05:06 Creatinine 7.9 mg/dL (0.6-1.2) H 10/18/20 05:06 Estimated GFR 6 ml/min 10/18/20 05:06 BUN/Creatinine Ratio 6 % 10/18/20 05:06 Glucose 325 mg/dL (65-100) H 10/18/20 05:06 POC Glucose 169 mg/dL (70-105) H 10/17/20 02:48 Lactic Acid 2.00 mmol/L (0.7-2.0) 10/17/20 Unknown Calcium 10.3 mg/dL (8.4-10.2) H 10/18/20 05:06 Total Creatine Kinase 57 units/L (30-135) 10/16/20 23:58 Troponin T 0.162 ng/mL (0.00-0.029) H* 10/16/20 23:58 NT-Pro-B Natriuret Pep 74819 pg/mL (0-900) H 10/16/20 23:58 Triglycerides 146 mg/dL (2-149) 10/16/20 23:58 Cholesterol 107 mg/dL (50-199) 10/16/20 23:58 LDL Cholesterol Direct 39 mg/dL (50-130) L 10/16/20 23:58 HDL Cholesterol 37 mg/dL (40-59) L 10/16/20 23:58 Cholesterol/HDL Ratio 2.89 % 10/16/20 23:58 TSH 2.940 mlU/mL (0.270-4.200) 10/17/20 03:50 Salicylates < 0.3 mg/dL (2.8-20.0) L 10/17/20 03:50 Acetaminophen 5.0 ug/mL (10.0-30.0) L 10/17/20 03:50 Coronavirus (PCR) Positive (Negative) A 10/17/20 Unknown Hepatitis A IgM Ab Non-reactive (NonReactive) 10/17/20 15:46 Hep Bs Antigen Nonreactive (Negative) 10/17/20 15:46 Hep B Core IgM Ab Non-reactive (NonReactive) 10/17/20 15:46 Hepatitis C Antibody Non-reactive (NonReactive) 10/17/20 15:46 Microbiology: Microbiology 10/17/20 03:50 Peripheral/Venous Blood Culture - Preliminary NO GROWTH AFTER 24 HOURS 10/17/20 03:43 Peripheral/Venous Blood Culture - Preliminary NO GROWTH AFTER 24 HOURS Brandon/IV: Voiding Method Toilet Active Medications - Current Medications Current Medications: Generic Name Dose Route Start Last Admin Trade Name Freq PRN Reason Stop Dose Admin Acetaminophen 650 mg 10/17/20 04:41 Acetaminophen 325 Mg Tab PO Q4H PRN Pain MILD(1-3)/Fever >100.5/BECKWITH Aspirin 81 mg 10/18/20 10:00 10/18/20 09:30 Aspirin Ec 81 Mg Tab PO 81 mg DAILY YENIFER Administration Dextrose 50 gm 10/17/20 02:01 Dextrose 50% In Water (25gm) 50 Ml Vial IV Q30MIN PRN Hypoglycemia Protocol Heparin Sodium (Porcine) 2,900 unit 10/17/20 04:25 Heparin 10,000 Units/10 Ml Vial 40 unit/kg (2900 unit) IV Q6H PRN Anti-Xa Assay < 0.1 units/ml Sodium Chloride 100 mls @ 999 mls/hr 10/17/20 03:32 Nacl 0.9% IV ROSHNI PRN Hypotension Heparin Sodium/Sodium Chloride 25,000 unit in 500 mls @ 21 mls/hr 10/17/20 05:00 10/17/20 15:04 Heparin/ 0.45% Nacl-25,000 Unit/500 Ml IV 0 units/hr TITR YENIFER 0 mls/hr Titration Protocol 1,050 UNITS/HR Ceftriaxone Sodium 2 gm in 100 mls @ 200 mls/hr 10/17/20 22:00 10/18/20 04:04 Rocephin/Ns 2 Gm/100 Ml IV 10/20/20 22:29 Not Given QHS [facility] Protocol Azithromycin 500 mg in 250 mls @ 250 mls/hr 10/17/20 22:00 10/18/20 04:05 Zithromax/Ns IV 08/21/21 22:59 Not Given QHS [facility] Protocol Magnesium Hydroxide 30 ml 10/17/20 04:54 Magnesium Hydroxide (Mom) Oral Liqd Udc PO Q4H PRN Constipation Metoprolol Succinate 100 mg 10/18/20 10:00 10/18/20 09:30 Metoprolol Succinate Xl 100 Mg Tab PO 100 mg DAILY YENIFER Administration Morphine Sulfate 2 mg 10/17/20 04:54 Morphine 2 Mg/1 Ml Inj IV Q4H PRN Pain, Moderate (4-6) Morphine Sulfate 4 mg 10/17/20 04:54 Morphine 4 Mg/1 Ml Inj IV Q4H PRN Pain , Severe (7-10) Ondansetron HCl 4 mg 10/17/20 04:41 Ondansetron 4 Mg/2 Ml Inj IV Q8H PRN Nausea And Vomiting Sodium Chloride 10 ml 10/17/20 10:00 10/18/20 09:30 Sodium Chloride 0.9% 10 Ml Flush Syringe IV Not Given BID [facility] Sodium Chloride 10 ml 10/17/20 04:41 Sodium Chloride 0.9% 10 Ml Flush Syringe IV PRN PRN LINE FLUSH
--- NOTE | 2020-10-18 15:11 | Consultation ---
History of Present Illness - Reason for Consult Consult date: 10/18/20 COVID-19 Requesting physician: LAURENCE WOODS - History of Present Illness The patient is a 69-year-old female with ESRD on HD was admitted to the hospital with confusion. Patient had been diagnosed with COVID-19 at the end of August and apparently had missed some of the dialysis sessions. Upon evaluation in the ER, labs showed hyperkalemia, lactic acid elevation, BNP of 17,000, creatinine 12.2. Patient again tested positive for COVID-19, hence infectious diseases was consulted. Review of Systems: reviewed in the chart, unable to obtain, minimize risk of transmission Past History Past Medical History: cancer (history of left breast cancerstatus post mastectomy, radiation and chemotherapy. Now diagnosed with right breast cancer), diabetes, GERD, hypertension, renal failure Past Surgical History: cholecystectomy, hysterectomy, mastectomy (left), Other (Right arm AV fistula placement,PD catheter placement, PD catheter removal, kidney biopsy in 2016 left breast surgery reconstruction) Social history: , lives with family (lives with ), other (retired RN). denies: smoking (quit smoking a few months ago), alcohol abuse, prescription drug abuse, IV drug use Family history: cancer (Father of lung cancer at age 68 mother of liver cancer) Medications and Allergies Allergies Allergy/AdvReac Type Severity Reaction Status Date / Time statins Allergy Severe Unknown Uncoded 10/16/20 22:30 Home Medications Medication Instructions Recorded Confirmed Last Taken Type Aspirin EC [Halfprin EC] 81 mg PO DAILY 12/19/19 01/03/20 01/02/20 History 81 mg Clopidogrel [Plavix] 75 mg PO DAILY 12/19/19 01/03/20 01/02/20 History 75 mg Labetalol 100mg TAB 100 mg PO DAILY 12/19/19 01/03/20 01/02/20 History 100 mg Metoprolol Succinate [Toprol Xl] 100 mg PO DAILY 12/19/19 01/03/20 01/02/20 History 100 mg Pentoxifylline 400 mg PO DAILY 12/19/19 01/03/20 01/02/20 History 400 mg Active Meds: Active Medications Acetaminophen (Acetaminophen 325 Mg Tab) 650 mg PO Q4H PRN PRN Reason: Pain MILD(1-3)/Fever >100.5/BECKWITH Aspirin (Aspirin Ec 81 Mg Tab) 81 mg PO DAILY [facility] Last Admin: 10/18/20 09:30 Dose: 81 mg Documented by: Dextrose (Dextrose 50% In Water (25gm) 50 Ml Vial) 50 gm IV Q30MIN PRN; Protocol PRN Reason: Hypoglycemia Heparin Sodium (Porcine) (Heparin 10,000 Units/10 Ml Vial) 2,900 unit 40 unit/kg (2900 unit) IV Q6H PRN PRN Reason: Anti-Xa Assay < 0.1 units/ml Sodium Chloride (Nacl 0.9%) 100 mls @ 999 mls/hr IV ROSHNI PRN PRN Reason: Hypotension Heparin Sodium/Sodium Chloride (Heparin/ 0.45% Nacl-25,000 Unit/500 Ml) 25,000 unit in 500 mls @ 21 mls/hr IV TITR [facility]; Protocol Last Titration: 10/17/20 15:04 Dose: 0 units/hr, 0 mls/hr Documented by: Ceftriaxone Sodium (Rocephin/Ns 2 Gm/100 Ml) 2 gm in 100 mls @ 200 mls/hr IV QHS [facility]; Protocol Stop: 10/20/20 22:29 Last Admin: 10/18/20 04:04 Dose: Not Given Documented by: Azithromycin (Zithromax/Ns) 500 mg in 250 mls @ 250 mls/hr IV QHS [facility]; Protocol Stop: 10/20/20 22:59 Last Admin: 10/18/20 04:05 Dose: Not Given Documented by: Magnesium Hydroxide (Magnesium Hydroxide (Mom) Oral Liqd Udc) 30 ml PO Q4H PRN PRN Reason: Constipation Metoprolol Succinate (Metoprolol Succinate Xl 100 Mg Tab) 100 mg PO DAILY [facility] Last Admin: 10/18/20 09:30 Dose: 100 mg Documented by: Morphine Sulfate (Morphine 2 Mg/1 Ml Inj) 2 mg IV Q4H PRN PRN Reason: Pain, Moderate (4-6) Morphine Sulfate (Morphine 4 Mg/1 Ml Inj) 4 mg IV Q4H PRN PRN Reason: Pain , Severe (7-10) Ondansetron HCl (Ondansetron 4 Mg/2 Ml Inj) 4 mg IV Q8H PRN PRN Reason: Nausea And Vomiting Sodium Chloride (Sodium Chloride 0.9% 10 Ml Flush Syringe) 10 ml IV BID [facility] Last Admin: 10/18/20 09:30 Dose: Not Given Documented by: Sodium Chloride (Sodium Chloride 0.9% 10 Ml Flush Syringe) 10 ml IV PRN PRN PRN Reason: LINE FLUSH Physical Examination - Physical Exam Narrative exam: Physical Exam (reviewed in chart to minimize risk of transmission) Constitutional: deferred Head, Ears, Nose: deferred Eyes: deferred Neck: deferred Oral: deferred Cardiovascular: deferred Respiratory: deferred GI: deferred Musculoskeletal: deferred Skin: deferred Hem/Lymphatic: deferred Psych: deferred Neurological: deferred - Constitutional Vitals: Vital Signs Temp Pulse Resp BP Pulse Ox 98.7 F 108 H 24 127/79 98 10/18/20 11:40 10/18/20 14:00 10/18/20 11:40 10/18/20 14:00 10/18/20 11:40 Temperature -Last 24 Hours Temperature 98.7 F Temperature 97.8 F Temperature 97.8 F Temperature 98.3 F Results - Labs CBC & Chem 7: 10/18/20 05:06 10/18/20 05:06 Labs: Abnormal lab results 10/17/20 10/18/20 10/18/20 Range/Units 15:46 05:06 05:06 WBC 4.3 L (4.5-11.0) K/mm3 RBC 2.97 L (3.65-5.03) M/mm3 Hgb 8.0 L (10.1-14.3) gm/dl Hct 25.5 L (30.3-42.9) % MCH 27 L (28-32) pg RDW 28.3 H (13.2-15.2) % Seg Neuts % (Manual) 83.0 H (40.0-70.0) % Lymphocytes % (Manual) 12.0 L (13.4-35.0) % Lymphocytes # (Manual) 0.5 L (1.2-5.4) K/mm3 D-Dimer (0-234) ng/mlDDU Potassium 5.1 H 5.2 H (3.6-5.0) mmol/L Chloride 96.6 L 96.7 L (98-107) mmol/L BUN 37 H 48 H (7-17) mg/dL Creatinine 6.3 H 7.9 H (0.6-1.2) mg/dL Glucose 192 H 325 H (65-100) mg/dL Calcium 10.3 H (8.4-10.2) mg/dL Lactate Dehydrogenase (91-180) units/L 10/18/20 10/18/20 Range/Units 11:26 11:26 WBC (4.5-11.0) K/mm3 RBC (3.65-5.03) M/mm3 Hgb (10.1-14.3) gm/dl Hct (30.3-42.9) % MCH (28-32) pg RDW (13.2-15.2) % Seg Neuts % (Manual) (40.0-70.0) % Lymphocytes % (Manual) (13.4-35.0) % Lymphocytes # (Manual) (1.2-5.4) K/mm3 D-Dimer 5545.34 H (0-234) ng/mlDDU Potassium (3.6-5.0) mmol/L Chloride (98-107) mmol/L BUN (7-17) mg/dL Creatinine (0.6-1.2) mg/dL Glucose (65-100) mg/dL Calcium (8.4-10.2) mg/dL Lactate Dehydrogenase 411 H (91-180) units/L - Imaging and Cardiology Chest x-ray: report reviewed, image reviewed (fluid overload v/s pneumonia) Assessment and Plan Cultures: SARS CoV2 PCR: Positive Hepatitis panel: Nonreactive A/P: 69-year-old female with ESRD on HD admitted with confusion: #COVID-19: May represent viral shedding from recent diagnosis. Hypoxia could be from fluid overload. #Acute hypoxic respiratory failure: Chest x-ray with pneumonia versus fluid overload. Hypoxia mild and transient #ESRD on HD #Atrial fibrillation #Acute encephalopathy: Probably due to missed dialysis. Recs: Empiric antibiotics x 3-5 days Dialysis per nephrology No role for remdesivir at this time We will follow up COVID-19 related markers Carlos Austin MD, FACP [facility] O: [phone] F: [phone]
[2020-10-18] MEDS ORDERED: ENOXAPARIN 100 MG/1 ML INJ SUB-Q SCH (19:00)
[2020-10-18] MEDS ORDERED: ENOXAPARIN 80 MG/0.8 ML INJ SUB-Q SCH (20:00)
[2020-10-19] MEDS: AZITHROMYCIN/NS 500 MG/250 ML 500 MG/250 ML BAG IV SCH ×2 (02:37→22:28)
[2020-10-19] MEDS: APIXABAN 5 MG TAB PO SCH ×3 (02:37→22:27)
[2020-10-19] MEDS: cefTRIAXone/NS 2 GM/100 ML 2 GM/100 ML BAG IV SCH ×2 (02:40→22:27)
[2020-10-19 06:24] LABS: Hematocrit 24.1 % (30.3-42.9); Hemoglobin 7.6 gm/dl (10.1-14.3); Mean Corpuscular HGB Conc 31 % (30-34); Mean Corpuscular Volume 86 fl (79-97); Platelet Count 168 K/mm3 (140-440); Red Blood Count 2.82 M/mm3 (3.65-5.03)
[2020-10-19 06:25] LABS: Red Cell Distribution Width 27.6 % (13.2-15.2)
[2020-10-19 06:34] LABS: INR 1.08 (0.87-1.13)
[2020-10-19 06:35] LABS: Partial Thromboplastin Time 32.5 Sec. (24.2-36.6)
--- NOTE | 2020-10-19 08:59 | Progress Note ---
Assessment and Plan - Patient Problems (1) Hyperkalemia Current Visit: Yes Status: Acute Plan to address problem: Hyperkalemia secondary to missed dialysis treatments. Potassium improved postdialysis. (2) Acute encephalopathy Current Visit: Yes Status: Acute Plan to address problem: ? Brain fogging related to COVID 19.? related to uremia. CT head was negative. Patient receive dialysis for 2 days. Mental status is back to her baseline. Still unsteady with her gait. Will have PT evaluate and treat (3) Atrial fibrillation with RVR Current Visit: Yes Status: Acute Plan to address problem: started on anticoagulation and Cardizem. Rate now controlled. Continue management by primary attending. (4) End-stage renal disease needing dialysis Current Visit: Yes Status: Acute Plan to address problem: increased azotemia secondary to missed dialysis. Patient has improved with dialysis. We will dialyze again tomorrow. (5) COVID-19 virus infection Current Visit: Yes Status: Acute Plan to address problem: Patient has had Covid 19 for at least 3 weeks at the time of presentation. PCR is still positive. Patient on dexamethasone. Continue management by primary attending (6) Breast cancer Current Visit: No Status: Acute Plan to address problem: recently diagnosed. Follow up with oncologist as an outpatient. (7) Anemia in chronic kidney disease (CKD) Current Visit: Yes Status: Acute Plan to address problem: continue erythropoietin on dialysis and follow-up hemoglobin (8) Type 2 diabetes mellitus with diabetic chronic kidney disease Current Visit: Yes Status: Acute Plan to address problem: blood sugar management by primary attending. Subjective Date of service: 10/19/20 Principal diagnosis: End-stage renal disease with hyperkalemia Interval history: Patient seen lying in bed. She is very upset. Not happy with how she was treated last night. "I just did not get along with them". Breathing better and mental status is back to baseline. She knows her name, address and who the president is. Still unsteady on her feet and needs assistance to the bathroom Objective - Exam Narrative Exam: Middle-aged -Citizen Of [place] female lying in bed in no acute distress on oxygen via nasal cannula HEENT: NCAT, Neck: Supple, no venous distention CVS: S1S2 RRR with no murmur, rub or gallop Chest: Diminished breath sounds with few rhonchi Abdomen: Protuberant, soft, nontender, no organomegaly, bowel sounds are present Extremities: No edema Neuro: Awake, alert no focal deficits - Vital Signs Vital signs: Vital Signs - 12hr 10/18/20 10/19/20 10/19/20 21:35 03:14 06:34 Temperature 98.0 F 98.4 F 98.0 F Pulse Rate 103 H 106 H 120 H Respiratory 18 16 16 Rate Blood Pressure 120/70 117/79 131/91 O2 Sat by Pulse 97 95 100 Oximetry - Lab 10/19/20 04:51 10/19/20 04:51 Most recent lab results Calcium 10.3 mg/dL (8.4-10.2) H 10/18/20 05:06 Medications & Allergies - Medications Allergies/Adverse Reactions: Allergies statins Allergy (Severe, Uncoded 10/16/20 22:30) Unknown kidney failure Home Medications: Home Medications Medication Instructions Recorded Confirmed Last Taken Type Aspirin EC [Halfprin EC] 81 mg PO DAILY 12/19/19 01/03/20 01/02/20 History 81 mg Clopidogrel [Plavix] 75 mg PO DAILY 12/19/19 01/03/20 01/02/20 History 75 mg Labetalol 100mg TAB 100 mg PO DAILY 12/19/19 01/03/20 01/02/20 History 100 mg Metoprolol Succinate [Toprol Xl] 100 mg PO DAILY 12/19/19 01/03/20 01/02/20 History 100 mg Pentoxifylline 400 mg PO DAILY 12/19/19 01/03/20 01/02/20 History 400 mg Active Medications: Generic Name Dose Route Start Last Admin Trade Name Jose Cruzq PRN Reason Stop Dose Admin Acetaminophen 650 mg 10/17/20 04:41 Acetaminophen 325 Mg Tab PO Q4H PRN Pain MILD(1-3)/Fever >100.5/BECKWITH Apixaban 5 mg 10/18/20 22:00 10/19/20 02:37 Apixaban 5 Mg Tab PO 5 mg Q12HR YENIFER Administration Protocol Aspirin 81 mg 10/18/20 10:00 10/18/20 09:30 Aspirin Ec 81 Mg Tab PO 81 mg DAILY YENIFER Administration Dextrose 50 gm 10/17/20 02:01 Dextrose 50% In Water (25gm) 50 Ml Vial IV Q30MIN PRN Hypoglycemia Protocol Sodium Chloride 100 mls @ 999 mls/hr 10/17/20 03:32 Nacl 0.9% IV ROSHNI PRN Hypotension Ceftriaxone Sodium 2 gm in 100 mls @ 200 mls/hr 10/17/20 22:00 10/19/20 02:40 Rocephin/Ns 2 Gm/100 Ml IV 10/20/20 22:29 200 mls/hr QHS YENIFER Administration Protocol Azithromycin 500 mg in 250 mls @ 250 mls/hr 10/17/20 22:00 10/19/20 02:37 Zithromax/Ns IV 10/20/20 22:59 250 mls/hr QHS YENIFER Administration Protocol Magnesium Hydroxide 30 ml 10/17/20 04:54 Magnesium Hydroxide (Mom) Oral Liqd Udc PO Q4H PRN Constipation Metoprolol Succinate 100 mg 10/18/20 10:00 10/18/20 09:30 Metoprolol Succinate Xl 100 Mg Tab PO 100 mg DAILY YENIFER Administration Morphine Sulfate 2 mg 10/17/20 04:54 Morphine 2 Mg/1 Ml Inj IV Q4H PRN Pain, Moderate (4-6) Morphine Sulfate 4 mg 10/17/20 04:54 Morphine 4 Mg/1 Ml Inj IV Q4H PRN Pain , Severe (7-10) Ondansetron HCl 4 mg 10/17/20 04:41 Ondansetron 4 Mg/2 Ml Inj IV Q8H PRN Nausea And Vomiting Sodium Chloride 10 ml 10/17/20 10:00 10/19/20 02:38 Sodium Chloride 0.9% 10 Ml Flush Syringe IV 10 ml BID YENIFER Administration Sodium Chloride 10 ml 10/17/20 04:41 Sodium Chloride 0.9% 10 Ml Flush Syringe IV PRN PRN LINE FLUSH
--- NOTE | 2020-10-19 09:42 | Progress Note ---
Assessment and Plan Assessment and Plan Assessment and plan: --COVID-19 positive; Droplet and contact isolation, inflammatory markers, no indication for remdesivir, prone positioning Home O2 evaluation at discharge. ID consulted --Possible bilateral pneumonia; empiric antibiotics Rocephin and Zithromax. Check procalcitonin Supportive care, follow cultures --Elevated D-dimers On heparin drip, transition to Eliquis Try to get CTA chest followed by HD coordinating with tool rental technician, As well as lower extremity venous Doppler to rule out DVT -- Acute toxic metabolic encephalopathy/present on admission Current Visit: Yes Status: Acute Multifactorial, due to uremia, missed hemodialysis, fluid overload. Electrolyte abnormalities like hyperkalemia Treat the underlying cause -- Hyperkalemia K6.3 on admission Current Visit: Yes Status: Acute Patient has received insulin and glucose, albuterol, sodium bicarb We will monitor EKG and also monitor potassium levels. Potassium level significantly improved --End-stage renal disease needing dialysis Current Visit: Yes Status: Acute Nephrology following Dialysis per schedule --Atrial fibrillation with RVR Current Visit: Yes Status: Acute New onset. Cardizem On Heparin drip, will transition to Eliquis today Follow, echocardiogram Cardiology consult if needed -- DVT prophylaxis Current Visit: Yes Status: Acute Transition to Eliquis --Full code status Current Visit: Yes Status: Acute Patient is full code. Closely monitor the patient and adjust management as needed Plan of care reviewed with the patient and her nurse [employer] Certified Powerplant Mechanic recommendations noted and appreciated Subjective Date of service: 10/19/20 Principal diagnosis: End-stage renal disease with hyperkalemia Interval history: 69-year-old -[place] female with known history of end-stage renal disease on dialysis presents to the emergency room today with confusion. She was recently diagnosed with COVID-19 at the end of August and had been hospitalized at an outside facility and therefore missed some of her dialysis sessions. She was referred to the emergency room for evaluation of her confusion. Patient states that she feels she due for dialysis today. She denies any headache or dizziness, no diaphoresis, no nausea vomiting and no diarrhea. She has chronic shortness of breath, denies any cough, denies any hematuria or dysuria, no bright red blood per rectum. Work-up in the emergency room today labs were significant for hyperkalemia of 6.3, lactic acid of 3.0, troponin of 0.162 and a BNP of 70,000. Patient was given insulin and glucose, calcium gluconate, albuterol sodium bicarb. For his hyperkalemia. Checks x-ray reveals bilateral proximal/interstitial disease which could represent CHF and or pneumonia. He developed left atrial fibrillation in the ER and was subsequently started on heparin drip and also given Cardizem injection. Distillery Laborer has been consulted by the ER physician for possible dialysis. Patient has been admitted with acute encephalopathy, hyperkalemia, end-stage renal disease needing dialysis, CHF versus pneumonia. 10/18/2020; COVID-19 positive, new onset A. fib on beta-blockers, heparin changed to Eliquis Elevated D-dimers, on Eliquis, ESRD on hemodialysis per schedule Follow ID, renal, cardiology evaluation recommendations 10/19/20 Confusion resolved On 3 L nasal cannula oxygen Taper oxygen Hemodialysis in a.m. Discharge if doing well on room air History Interval history: I have seen and examined the patient at the bedside this morning Isolation precautions PPE protocols strictly followed during evaluation per COVID-19 guidelines Patient is on heparin drip due to very high D-dimers high suspicion for DVT PE Will transition heparin drip to renal dose of Lovenox Patient complains of generalized weakness Receiving hemodialysis per schedule Vital signs noted Objective - Constitutional Vitals: Vital Signs - 12hr 10/19/20 10/19/20 03:14 06:34 Temperature 98.4 F 98.0 F Pulse Rate 106 H 120 H Respiratory 16 16 Rate Blood Pressure 117/79 131/91 O2 Sat by Pulse 95 100 Oximetry - Labs CBC & Chem 7: 10/20/20 05:29 10/19/20 04:51 Labs: Abnormal lab results 10/18/20 10/18/20 10/18/20 Range/Units 11:26 11:26 11:26 RBC (3.65-5.03) M/mm3 Hgb (10.1-14.3) gm/dl Hct (30.3-42.9) % MCH (28-32) pg RDW (13.2-15.2) % D-Dimer 5545.34 H (0-234) ng/mlDDU Creatinine (0.6-1.2) mg/dL Ferritin 2781.0 H (10.0-200.0) ng/mL Lactate Dehydrogenase 411 H (91-180) units/L C-Reactive Protein (0.00-1.30) mg/dL 10/19/20 10/19/20 10/19/20 Range/Units 04:51 04:51 04:51 RBC 2.82 L (3.65-5.03) M/mm3 Hgb 7.6 L (10.1-14.3) gm/dl Hct 24.1 L (30.3-42.9) % MCH 27 L (28-32) pg RDW 27.6 H (13.2-15.2) % D-Dimer 7731.12 H (0-234) ng/mlDDU Creatinine 6.0 H (0.6-1.2) mg/dL Ferritin (10.0-200.0) ng/mL Lactate Dehydrogenase (91-180) units/L C-Reactive Protein (0.00-1.30) mg/dL 10/19/20 10/19/20 Range/Units 04:51 04:51 RBC (3.65-5.03) M/mm3 Hgb (10.1-14.3) gm/dl Hct (30.3-42.9) % MCH (28-32) pg RDW (13.2-15.2) % D-Dimer (0-234) ng/mlDDU Creatinine (0.6-1.2) mg/dL Ferritin 1978.0 H (10.0-200.0) ng/mL Lactate Dehydrogenase (91-180) units/L C-Reactive Protein 6.10 H (0.00-1.30) mg/dL HEART Score - HEART Score Troponin: Troponin T 0.162 ng/mL (0.00-0.029) H* 10/16/20 23:58
[2020-10-19] MEDS: METOPROLOL SUCCINATE XL 100 MG TAB PO SCH (10:51)
[2020-10-19] MEDS: ASPIRIN EC 81 MG TAB PO SCH (10:51)
--- NOTE | 2020-10-19 13:16 | Progress Note ---
Assessment and Plan Cultures: SARS CoV2 PCR: Positive Hepatitis panel: Nonreactive 10/17/2020 blood culture: No growth A/P: 69-year-old female with ESRD on HD admitted with confusion: #COVID-19: May represent viral shedding from recent diagnosis. Hypoxia could be from fluid overload. Ferritin 1977, CRP 6.1. No role for remdesivir. #Acute hypoxic respiratory failure: Chest x-ray with pneumonia +/- fluid overloa d. #ESRD on HD #Atrial fibrillation #Acute encephalopathy: Probably due to missed dialysis. Recs: Empiric antibiotics x 3 days Since she is needing some oxygen as well as lab findings of elevated inflammatory markers, will start steroids x 10 days continue to wean oxygen Carlos Austin MD, FACP [facility] O: [phone] F: [phone] Subjective Date of service: 10/19/20 Principal diagnosis: End-stage renal disease with hyperkalemia Interval history: No fever. On supplemental oxygen by nasal cannula. Ferritin 1977, CRP 6.1. Objective - Exam Narrative Exam: Physical Exam (reviewed in chart to minimize risk of transmission) Constitutional: deferred Head, Ears, Nose: deferred Eyes: deferred Neck: deferred Oral: deferred Cardiovascular: deferred Respiratory: deferred GI: deferred Musculoskeletal: deferred Skin: deferred Hem/Lymphatic: deferred Psych: deferred Neurological: deferred - Constitutional Vitals: Vital Signs Temp Pulse Resp BP Pulse Ox 98.0 F 120 H 16 131/91 100 10/19/20 06:34 10/19/20 06:34 10/19/20 06:34 10/19/20 06:34 10/19/20 06:34 Temperature -Last 24 Hours Temperature 98.0 F Temperature 98.4 F Temperature 98.0 F Temperature 97.9 F - Labs CBC & Chem 7: 10/19/20 04:51 10/19/20 04:51 Labs: Abnormal lab results 10/18/20 10/18/20 10/18/20 Range/Units 11:26 11:26 11:26 RBC (3.65-5.03) M/mm3 Hgb (10.1-14.3) gm/dl Hct (30.3-42.9) % MCH (28-32) pg RDW (13.2-15.2) % D-Dimer 5545.34 H (0-234) ng/mlDDU Creatinine (0.6-1.2) mg/dL Ferritin 2781.0 H (10.0-200.0) ng/mL Lactate Dehydrogenase 411 H (91-180) units/L C-Reactive Protein (0.00-1.30) mg/dL 10/19/20 10/19/20 10/19/20 Range/Units 04:51 04:51 04:51 RBC 2.82 L (3.65-5.03) M/mm3 Hgb 7.6 L (10.1-14.3) gm/dl Hct 24.1 L (30.3-42.9) % MCH 27 L (28-32) pg RDW 27.6 H (13.2-15.2) % D-Dimer 7731.12 H (0-234) ng/mlDDU Creatinine 6.0 H (0.6-1.2) mg/dL Ferritin (10.0-200.0) ng/mL Lactate Dehydrogenase (91-180) units/L C-Reactive Protein (0.00-1.30) mg/dL 10/19/20 10/19/20 Range/Units 04:51 04:51 RBC (3.65-5.03) M/mm3 Hgb (10.1-14.3) gm/dl Hct (30.3-42.9) % MCH (28-32) pg RDW (13.2-15.2) % D-Dimer (0-234) ng/mlDDU Creatinine (0.6-1.2) mg/dL Ferritin 1978.0 H (10.0-200.0) ng/mL Lactate Dehydrogenase (91-180) units/L C-Reactive Protein 6.10 H (0.00-1.30) mg/dL
[2020-10-19] MEDS: DEXAMETHASONE 4 MG TAB PO SCH (15:55)
[2020-10-20] MEDS ORDERED: oxyCODONE /ACETAMINOPHEN 5-325MG TAB PO PRN (00:05)
[2020-10-20] MEDS ORDERED: diphenhydrAMINE 25 MG CAP PO PRN (00:14)
[2020-10-20 06:47] LABS: Hematocrit 25.9 % (30.3-42.9); Hemoglobin 8.3 gm/dl (10.1-14.3); Mean Corpuscular HGB Conc 32 % (30-34); Mean Corpuscular Volume 87 fl (79-97); Platelet Count 179 K/mm3 (140-440); Red Blood Count 2.99 M/mm3 (3.65-5.03)
[2020-10-20 06:51] LABS: Red Cell Distribution Width 28.1 % (13.2-15.2)
[2020-10-20] MEDS: DEXAMETHASONE 4 MG TAB PO SCH (10:14)
[2020-10-20] MEDS: METOPROLOL SUCCINATE XL 100 MG TAB PO SCH (10:16)
[2020-10-20] MEDS: ASPIRIN EC 81 MG TAB PO SCH (10:16)
[2020-10-20] MEDS: APIXABAN 5 MG TAB PO SCH (10:16)
--- NOTE | 2020-10-20 10:16 | Progress Note ---
Assessment and Plan - Patient Problems (1) Hyperkalemia Current Visit: Yes Status: Acute Plan to address problem: Hyperkalemia secondary to missed dialysis treatments. Potassium improved postdialysis. (2) Acute encephalopathy Current Visit: Yes Status: Acute Plan to address problem: ? Brain fogging related to COVID 19.? related to uremia. CT head was negative. Patient receive dialysis for 2 days on presentation. Mental status is back to her baseline. Still unsteady with her gait. Physical therapy evaluation ongoing. Home health is being arranged for care on Discharge (3) Atrial fibrillation with RVR Current Visit: Yes Status: Acute Plan to address problem: started on anticoagulation and Cardizem. Rate now controlled. Continue management by primary attending. (4) End-stage renal disease needing dialysis Current Visit: Yes Status: Acute Plan to address problem: increased azotemia secondary to missed dialysis. Patient has improved with dialysis. Receiving dialysis today (5) COVID-19 virus infection Current Visit: Yes Status: Acute Plan to address problem: Patient has had Covid 19 for at least 3 weeks at the time of presentation. PCR is still positive. Patient on oxygen and dexamethasone. Continue management by infectious disease specialist (6) Breast cancer Current Visit: No Status: Acute Plan to address problem: recently diagnosed. Follow up with oncologist as an outpatient. (7) Anemia in chronic kidney disease (CKD) Current Visit: Yes Status: Acute Plan to address problem: continue erythropoietin on dialysis and follow-up hemoglobin (8) Type 2 diabetes mellitus with diabetic chronic kidney disease Current Visit: Yes Status: Acute Plan to address problem: blood sugar management by primary attending. Subjective Date of service: 10/20/20 Principal diagnosis: End-stage renal disease with hyperkalemia Interval history: Patient was not evaluated at the bedside today due to the COVID-19 status to limit exposure of the consulting plate and frame filter operator and also for PPE preservation during the COVID-19 pandemic. I reviewed multidisciplinary notes and discussed with staff and physicians as needed. Patient receiving dialysis this morning Objective - Exam Narrative Exam: Patient was not examined at the bedside today due to personal protective equipment preservation during the COVID-19 pandemic - Vital Signs Vital signs: Vital Signs - 12hr 10/20/20 10/20/20 10/20/20 03:10 09:30 09:45 Temperature 97.6 F 98.6 F Pulse Rate 104 H 116 H 114 H Respiratory 18 24 Rate Blood Pressure 149/95 162/94 157/104 O2 Sat by Pulse 95 Oximetry O2 Sat by Pulse 98 Oximetry [ Bilateral Throughout] - Lab 10/20/20 05:29 10/19/20 04:51 Most recent lab results Calcium 10.3 mg/dL (8.4-10.2) H 10/18/20 05:06 Medications & Allergies - Medications Allergies/Adverse Reactions: Allergies statins Allergy (Severe, Uncoded 10/16/20 22:30) Unknown kidney failure Home Medications: Home Medications Medication Instructions Recorded Confirmed Last Taken Type Aspirin EC [Halfprin EC] 81 mg PO DAILY 12/19/19 01/03/20 01/02/20 History 81 mg Clopidogrel [Plavix] 75 mg PO DAILY 12/19/19 01/03/20 01/02/20 History 75 mg Labetalol 100mg TAB 100 mg PO DAILY 12/19/19 01/03/20 01/02/20 History 100 mg Metoprolol Succinate [Toprol Xl] 100 mg PO DAILY 12/19/19 01/03/20 01/02/20 History 100 mg Pentoxifylline 400 mg PO DAILY 12/19/19 01/03/20 01/02/20 History 400 mg Active Medications: Generic Name Dose Route Start Last Admin Trade Name Freq PRN Reason Stop Dose Admin Acetaminophen 650 mg 10/17/20 04:41 Acetaminophen 325 Mg Tab PO Q4H PRN Pain MILD(1-3)/Fever >100.5/BECKWITH Apixaban 5 mg 10/18/20 22:00 10/19/20 22:27 Apixaban 5 Mg Tab PO 5 mg Q12HR YENIFER Administration Protocol Aspirin 81 mg 10/18/20 10:00 10/19/20 10:51 Aspirin Ec 81 Mg Tab PO 81 mg DAILY YENIFER Administration Dexamethasone 6 mg 10/19/20 14:00 10/19/20 15:55 Dexamethasone 4 Mg Tab PO 10/29/20 13:59 6 mg DAILY YENIFER Administration Dextrose 50 gm 10/17/20 02:01 Dextrose 50% In Water (25gm) 50 Ml Vial IV Q30MIN PRN Hypoglycemia Protocol Diphenhydramine HCl 25 mg 10/20/20 00:14 10/20/20 00:18 Diphenhydramine 25 Mg Cap PO 25 mg QHS PRN Administration Insomnia Sodium Chloride 100 mls @ 999 mls/hr 10/17/20 03:32 Nacl 0.9% IV ROSHNI PRN Hypotension Ceftriaxone Sodium 2 gm in 100 mls @ 200 mls/hr 10/17/20 22:00 10/19/20 22:27 Rocephin/Ns 2 Gm/100 Ml IV 10/20/20 22:29 200 mls/hr QHS YENIFER Administration Protocol Azithromycin 500 mg in 250 mls @ 250 mls/hr 10/17/20 22:00 10/19/20 22:28 Zithromax/Ns IV 10/20/20 22:59 250 mls/hr QHS YENIFER Administration Protocol Magnesium Hydroxide 30 ml 10/17/20 04:54 Magnesium Hydroxide (Mom) Oral Liqd Udc PO Q4H PRN Constipation Metoprolol Succinate 100 mg 10/18/20 10:00 10/19/20 10:51 Metoprolol Succinate Xl 100 Mg Tab PO 100 mg DAILY YENIFER Administration Morphine Sulfate 2 mg 10/17/20 04:54 Morphine 2 Mg/1 Ml Inj IV Q4H PRN Pain, Moderate (4-6) Morphine Sulfate 4 mg 10/17/20 04:54 Morphine 4 Mg/1 Ml Inj IV Q4H PRN Pain , Severe (7-10) Ondansetron HCl 4 mg 10/17/20 04:41 Ondansetron 4 Mg/2 Ml Inj IV Q8H PRN Nausea And Vomiting Oxycodone/Acetaminophen 1 tab 10/20/20 00:05 10/20/20 00:11 Oxycodone /Acetaminophen 5-325mg Tab PO 1 tab Q6H PRN Administration Pain, Moderate (4-6) Sodium Chloride 10 ml 10/17/20 10:00 10/19/20 22:28 Sodium Chloride 0.9% 10 Ml Flush Syringe IV 10 ml BID YENIFER Administration Sodium Chloride 10 ml 10/17/20 04:41 Sodium Chloride 0.9% 10 Ml Flush Syringe IV PRN PRN LINE FLUSH
--- NOTE | 2020-10-20 12:46 | Discharge Summary ---
Providers - Providers Date of Admission: 10/17/20 04:30 Date of discharge: 10/20/20 Attending physician: KASIE MCFARLAND 10/17/20 02:00 Consult to Physician [CONS] Urgent Comment: Dr. Paz spoke with Dr. Kenney @ [id number] Consulting Provider: RAHEEM KENNEY Physician Instructions: Reason For Exam: esrd 10/18/20 14:57 Consult to Physician [CONS] Routine Comment: Consulting Provider: CATA MARSHALL Physician Instructions: Reason For Exam: Covid/ESRD 10/19/20 09:04 Physical Therapy Evaluation and Treat [CONS] Routine Comment: Reason For Exam: deconditioning. EDvaluate and treat Gait abnormali Primary care physician: ASHLEY PRIETO Hospitalization Condition: Serious Hospital course: Subjective Date of service: 10/19/20 Principal diagnosis: End-stage renal disease with hyperkalemia Interval history: 69-year-old -[place] female with known history of end-stage renal disease on dialysis presents to the emergency room today with confusion. She was recently diagnosed with COVID-19 at the end of August and had been hospitalized at an outside facility and therefore missed some of her dialysis sessions. She was referred to the emergency room for evaluation of her confusion. Patient states that she feels she due for dialysis today. She denies any headache or dizziness, no diaphoresis, no nausea vomiting and no diarrhea. She has chronic shortness of breath, denies any cough, denies any hematuria or dysuria, no bright red blood per rectum. Work-up in the emergency room today labs were significant for hyperkalemia of 6.3, lactic acid of 3.0, troponin of 0.162 and a BNP of 70,000. Patient was given insulin and glucose, calcium gluconate, albuterol sodium bicarb. For his hyperkalemia. Checks x-ray reveals bilateral proximal/interstitial disease which could represent CHF and or pneumonia. He developed left atrial fibrillation in the ER and was subsequently started on heparin drip and also given Cardizem injection. Ultrasound Technol has been consulted by the ER physician for possible dialysis. Patient has been admitted with acute encephalopathy, hyperkalemia, end-stage renal disease needing dialysis, CHF versus pneumonia. 10/18/2020; COVID-19 positive, new onset A. fib on beta-blockers, heparin changed to Eliquis Elevated D-dimers, on Eliquis, ESRD on hemodialysis per schedule Follow ID, renal, cardiology evaluation recommendations 10/19/20 Confusion resolved On 3 L nasal cannula oxygen Taper oxygen Hemodialysis in a.m. Discharge if doing well on room air 10/20/2020 Undergoing hemodialysis On room air-doing well Ambulatory sats requested Assessment and Plan Assessment and plan: --COVID-19 positive; Droplet and contact isolation, inflammatory markers, no indication for remdesivir, prone positioning Home O2 evaluation at discharge. ID consulted --Possible bilateral pneumonia; Antibiotics stopped --Elevated D-dimers On heparin drip, transition to Eliquis Patient to be discharged on Eliquis -- Acute toxic metabolic encephalopathy/present on admission Current Visit: Yes Status: Acute Encephalopathy resolved Secondary to uremia -- Hyperkalemia K6.3 on admission Current Visit: Yes Status: Acute Resolved --End-stage renal disease needing dialysis Current Visit: Yes Status: Acute Nephrology following Dialysis per schedule --Atrial fibrillation with RVR Current Visit: Yes Status: Acute On Eliquis 2.5 every 12 -- DVT prophylaxis Current Visit: Yes Status: Acute Transition to Eliquis --Full code status Current Visit: Yes Status: Acute Patient is full code. Closely monitor the patient and adjust management as needed Plan of care reviewed with the patient and her nurse Coverage Specialist recommendations noted and appreciated Disposition: 01 HOME / SELF CARE / HOMELESS Final Discharge Diagnosis (Prints w/discharge instructions): Acute metabolic encephalopathy. Covid pneumonia. End-stage renal disease needing dialysis. Atrial fibrillation with RVR. High D-dimers. Anticoagulant Time spent for discharge: 35 minutes - Discharge Diagnoses (1) Acute encephalopathy Status: Acute (2) Atrial fibrillation with RVR Status: Acute (3) COVID-19 virus infection Status: Acute (4) End-stage renal disease needing dialysis Status: Acute (5) Hyperkalemia Status: Acute (6) DVT prophylaxis Status: Acute Core Measure Documentation - Palliative Care Palliative Care/ Comfort Measures: Not Applicable - Core Measures Any of the following diagnoses?: none Exam - Constitutional Vitals: Temp Pulse Resp BP Pulse Ox 98.6 F 116 H 24 141/90 98 10/20/20 09:30 10/20/20 12:00 10/20/20 09:30 10/20/20 12:00 10/20/20 09:30 General appearance: Present: no acute distress, well-nourished - EENT Eyes: Present: PERRL ENT: hearing intact, clear oral mucosa - Neck Neck: Present: supple, normal ROM - Respiratory Respiratory effort: normal Respiratory: bilateral: CTA - Cardiovascular Heart rate: 78 Rhythm: regular Heart Sounds: Present: S1 & S2. Absent: rub, click - Extremities Extremities: no ischemia, pulses intact, pulses symmetrical, No edema Peripheral Pulses: within normal limits - Abdominal General gastrointestinal: Present: soft, non-tender, non-distended, normal bowel sounds Female genitourinary: Present: normal - Integumentary Integumentary: Present: clear, warm, dry - Musculoskeletal Musculoskeletal: gait normal, strength equal bilaterally - Psychiatric Psychiatric: appropriate mood/affect, intact judgment & insight - Neurologic Neurologic: CNII-XII intact, moves all extremities Plan Diet: renal Follow up with: ASHLEY PRIETO MD [Primary Care Provider] - 3-5 Days Prescriptions: dexAMETHasone [Decadron] 6 mg PO DAILY #7 tablet Apixaban [Eliquis] 2.5 mg PO Q12HR #60 tablet Aspirin EC [Halfprin EC] 81 mg PO DAILY #100 tablet Metoprolol Xl [Metoprolol SUCCINATE ER TAB] 100 mg PO DAILY #30 tablet Pentoxifylline 400 mg PO DAILY #30 Clopidogrel [Plavix] 75 mg PO DAILY #30
[2020-10-20 14:51] VITALS: BP 140/77
== END 2020-10-20 16:08 | disposition home health service (06) | DRG 640 ==
LOC: ED 19:41 → 3A 10-17 04:30
PROVIDERS: ADMIT Internal Medicine Geriatric Medicine; ATTEND Internal Medicine
PROC: 5A1D70Z Performance of Urinary Filtration, Intermittent, Less than 6 Hours Per Day (ICD-10-PCS; principal; 2020-10-17)
PROC: 5A1D70Z Performance of Urinary Filtration, Intermittent, Less than 6 Hours Per Day (ICD-10-PCS; 2020-10-18)
PROC: 5A1D70Z Performance of Urinary Filtration, Intermittent, Less than 6 Hours Per Day (ICD-10-PCS; 2020-10-20)
DX: E87.5 Hyperkalemia (principal); U07.1 COVID-19; G92 Toxic encephalopathy; N18.6 End stage renal disease; J12.82 Pneumonia due to coronavirus disease 2019; J96.01 Acute respiratory failure with hypoxia; I48.20 Chronic atrial fibrillation, unspecified; E87.2 Acidosis; R79.89 Other specified abnormal findings of blood chemistry; K21.9 Gastro-esophageal reflux disease without esophagitis; R91.8 Other nonspecific abnormal finding of lung field; B94.8 Sequelae of other specified infectious and parasitic diseases; D05.90 Unspecified type of carcinoma in situ of unspecified breast; D63.8 Anemia in other chronic diseases classified elsewhere; E11.22 Type 2 diabetes mellitus with diabetic chronic kidney disease; Z90.49 Acquired absence of other specified parts of digestive tract; Z79.899 Other long term (current) drug therapy
CPT/HCPCS: 36415; 70450; 71046; 80048; 80061; 80074; 80320; 82140; 82550; 82565; 82728; 82962; 83615; 83880; 84443; 84484; 85007; 85025; 85027; 85379; 85520; 85610; 85730; 86140; 87040; 93005; 94644; G0378; G0480; J0456; J0696; J1100; J1644; J1815; J8540; U0003

== ENCOUNTER 2021-06-25 08:11 | Day surgery (SDC) | payer MEDICARE ==
--- NOTE | 2021-06-25 09:32 | Anesthesia Consultation ---
<STEVEN GAGNON - Last Filed: 06/25/21 09:30> Anesthesia Consult and Med Hx Date of service: 06/25/21 - Airway Anesthetic Teeth Evaluation: Good (some missing teeth), Caps, Crowns ROM Head & Neck: Adequate Mental/Hyoid Distance: Adequate Mallampati Class: Class II Intubation Access Assessment: Probably Good - Pre-Operative Health Status ASA Pre-Surgery Classification: ASA3 Proposed Anesthetic Plan: MAC - Pulmonary Hx Smoking: Yes (1/2 x 50 years, quit 2 years ago) Hx Pneumonia: No - Cardiovascular System Hx Hypertension: Yes Hx Peripheral Vascular Disease: Yes (arterial insufficiency with claudication intermittent, both legs) - Central Nervous System CVA: Yes Hx Psychiatric Problems: No - Endocrine Hx Renal Disease: Yes Hx End Stage Renal Disease: Yes Hx Non-Insulin Dependent Diabetes: No (diet controlled) - Other Systems Hx Cancer: Yes (Left breast s/p mastectomy) <ASHLEY DON - Last Filed: 06/25/21 09:43> Anesthesia Consult and Med Hx - Pre-Operative Health Status ASA Pre-Surgery Classification: ASA3 Proposed Anesthetic Plan: MAC - Pulmonary Hx Smoking: Yes (former smoker quit 2 yrs; previous 1/2 PPD) Hx Respiratory Symptoms: No - Cardiovascular System Hx Hypertension: Yes Hx Cardia Arrhythmia: No (hx a-fib when severely ill and hospitalized in 2020; resolved prior to d/c) Hx Peripheral Vascular Disease: Yes - Central Nervous System CVA: Yes - Endocrine Hx End Stage Renal Disease: Yes (last HD 06/24) Hx Non-Insulin Dependent Diabetes: No (diet controlled) - Other Systems Hx Cancer: Yes (hx breast ca)
--- NOTE | 2021-06-25 09:34 | Anesthesia Day of Surgery ---
Anesthesia Day of Surgery - Day of Surgery Patient Examined: Yes Patient H&P Reviewed: Yes Patient is NPO: Yes
[2021-06-25] MEDS ORDERED: ePHEDrine SULFATE 50 MG/1 ML INJ ONE (09:59)
[2021-06-25] MEDS ORDERED: SODIUM CHLORIDE 0.9% 1000 ML 1,000 ML IV SCH (10:00)
[2021-06-25] MEDS ORDERED: MIDAZOLAM 2 MG/2 ML INJ ONE (10:03)
[2021-06-25] MEDS ORDERED: fentaNYL 100 MCG/2 ML INJ ONE (10:03)
[2021-06-25] MEDS ORDERED: KETAMINE/STERILE WATER 50 MG/ML SYRINGE ONE (10:03)
[2021-06-25 10:07] LABS: Hematocrit 37.9 % (30.3-42.9); Hemoglobin 11.6 gm/dl (10.1-14.3); Mean Corpuscular HGB Conc 31 % (30-34); Mean Corpuscular Volume 84 fl (79-97); Platelet Count 185 K/mm3 (140-440); Red Blood Count 4.54 M/mm3 (3.65-5.03); Red Cell Distribution Width 21.8 % (13.2-15.2)
[2021-06-25] MEDS ORDERED: SODIUM CHLORIDE P/F VIAL 10 ML 10 ML ONE (10:08)
[2021-06-25 10:17] LABS: INR 0.95 (0.87-1.13); Partial Thromboplastin Time 26.8 Sec. (24.2-36.6)
[2021-06-25 10:29] LABS: Calcium 9.6 mg/dL (8.4-10.2)
[2021-06-25] MEDS ORDERED: HEPARIN/NS 5000 UNIT/500ML 1,500 ML IR ONE (10:30)
[2021-06-25] MEDS ORDERED: LIDOCAINE 2%/EPINEPHRINE 1:200,000 VIAL (20 ML) INFILTRATI ONE (10:31)
[2021-06-25] MEDS ORDERED: HEPARIN 10,000 UNITS/10 ML VIAL ONE (10:31)
[2021-06-25] MEDS ORDERED: ceFAZolin/Water 2 GM/20 ML 2 GM/20 ML SYRINGE IV ONE (12:15)
[2021-06-25] MEDS ORDERED: NITROGLYCERIN DRIP 50 MG/250 ML BOTTLE ONE (12:41)
--- NOTE | 2021-06-25 14:10 | Short Stay Summary ---
Short Stay Documentation Date of service: 06/25/21 Narrative H&P: 70-year-old female with end-stage renal disease and critical limb ischemia of the bilateral lower extremities. - History Principal diagnosis: Critical limb ischemia of the right lower extremity H&P: obtained from office - Allergies and Medications Current Medications: Allergies statins Allergy (Severe, Uncoded 10/16/20 22:30) Unknown kidney failure Home Medications Medication Instructions Recorded Confirmed Last Taken Type Aspirin EC [Halfprin EC] 81 mg PO DAILY #100 tablet 10/20/20 06/25/21 06/24/21 Rx 1 TAB Ferric Citrate (Nf) [Auryxia] 630 mg PO TIDWM 12/27/20 06/25/21 06/24/21 History 1 TAB Letrozole (Nf) [Femara (Nf)] 2.5 mg PO QDAY 12/27/20 06/25/21 06/24/21 History 1 TAB Pantoprazole [Protonix TAB] 40 mg PO QDAY 12/27/20 06/25/21 Unknown History Clopidogrel [Plavix] 75 mg PO DAILY tablet 12/28/20 06/25/21 06/24/21 Rx 1 TAB Active Medications Sodium Chloride (Nacl 0.9% 1000 Ml) 1,000 mls @ 25 mls/hr IV DIRECT YENIFER Last Admin: 06/25/21 12:06 Dose: 500 mls - Physical exam General appearance: no acute distress Lungs: Normal air movement Gastrointestinal: normal Extremities: abnormal (Nonhealing wounds of the feet, right heel and left lateral ankle) - Brief post op/procedure progress note Date of procedure: 06/25/21 Pre-op diagnosis: Critical limb ischemia of the right lower extremity Post-op diagnosis: same Procedure: 1. Ultrasound-guided access of the left common femoral artery. 2. Angiography of the left lower extremity. 3. Selection of the abdominal aorta with angiography. 4. Selection of the right external iliac artery, superficial femoral artery, and popliteal artery with angiography of the right lower extremity. 5. Selection of the right peroneal artery with attempted crossing of the chronic total occlusion. 6. Selection of the right posterior tibial artery. 7. Angioplasty of the right tibioperoneal trunk with a 3.5 mm x 40 mm angiosculpt and 4 mm x 80 mm iNPACT balloon 8. Closure of the left common femoral artery with a 6 Korean Prostyle Anesthesia: MAC Surgeon: MARGARITA MURILLO Estimated blood loss: minimal Condition: stable - Hospital course Hospital course: Patient tolerated the procedure well. No immediate postprocedural complications. 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
--- NOTE | 2021-06-25 14:31 | Operative Report ---
Operative Report Operative Report: EXAM: 1. Ultrasound-guided access of the left common femoral artery. 2. Angiography of the left lower extremity. 3. Selection of the abdominal aorta with angiography. 4. Selection of the right external iliac artery, superficial femoral artery, and popliteal artery with angiography of the right lower extremity. 5. Selection of the right peroneal artery with attempted crossing of the chronic total occlusion. 6. Selection of the right posterior tibial artery. 7. Angioplasty of the right tibioperoneal trunk with a 3.5 mm x 40 mm angiosculpt and 4 mm x 80 mm iNPACT balloon 8. Closure of the left common femoral artery with a 6 [place]ian Prostyle DATE: 06/25/2021 VENDING MACHINE FILLER: MARGARITA MURILLO MD INDICATION: Peripheral vascular disease of the bilateral lower extremities with end-stage renal disease and bilateral lower extremity nonhealing wounds and critical limb ischemia. MEDICATIONS: Please see nursing report for full details. ANESTHESIA: MAC EBL: Minimal DEVICES: 3.5 mm x 40 mm angiosculpt 4 mm x 80 mm iNPACT Admiral balloon CONTRAST: Please see catheter report for full details. PROCEDURE: The risks, benefits, and alternatives were discussed with the patient; written informed consent was obtained. The patient was brought to the angiography suite and prepped and draped in a sterile fashion. Groins were draped in a sterile fashion. Ultrasound was used to evaluate the left common femoral artery which was peripherally calcified but otherwise patent. Under direct ultrasound guidance, the left common femoral artery was accessed with a 21-gauge micropuncture needle. 0.018 inch wire was passed into the aorta. Needle was exchanged for transitional dilator. Wire was exchanged for a 0.035 inch wire. Transitional dilator exchanged for 5 Jordanian sheath. Digital subtraction angiography was performed demonstrating patency of the left external iliac artery, common femoral artery, proximal superficial femoral artery, and proximal profunda femoral artery. The vessels were mildly ectatic. The abdominal aorta was selected and digital subtraction angiography was performed. The right external iliac artery was selected and digital subtraction angiography was performed. The right superficial femoral artery was selected and digital subtraction angiography was performed. The right popliteal artery was selected and digital subtraction angiography was performed. Digital subtraction angiography demonstrated patency of the infrarenal abdominal aorta with mild ectasia, patency of the bilateral common iliac arteries, external iliac arteries, and internal iliac arteries with mild ectasia. The right common femoral artery was patent with mild ectasia. The right profunda femoral artery was patent. The right superficial femoral artery had 20 to 30% intermittent stenotic lesions. The [id number] popliteal artery had intermittent 20 to 30% stenotic lesions. The mid and below the knee popliteal artery were patent. The tibioperoneal trunk had a mid 80% stenotic lesion. The anterior tibial artery FINDINGS: [ ] IMPRESSION: [ ]
--- NOTE | 2021-06-25 15:24 | Post Anesthesia Evaluation ---
- Post Anesthesia Evaluation Patient Participated: Yes Airway Patent: Yes Stable Respiratory Function: Yes Nausea/Vomiting: No Temp > 96.8F: Yes Pain Manageable: Yes Adequeate Hydration: Yes Anesthesia Complications: No
[2021-06-25 16:20] VITALS: BP 170/98
== END 2021-06-25 08:12 | disposition home or self-care (01) ==
LOC: CATHLABREC 08:11
PROVIDERS: ATTEND Radiology Diagnostic Radiology
DX: I70.235 Atherosclerosis of native arteries of right leg with ulceration of other part of foot (principal); I70.223 Atherosclerosis of native arteries of extremities with rest pain, bilateral legs; I70.261 Atherosclerosis of native arteries of extremities with gangrene, right leg; I70.213 Atherosclerosis of native arteries of extremities with intermittent claudication, bilateral legs; I12.0 Hypertensive chronic kidney disease with stage 5 chronic kidney disease or end stage renal disease; N18.6 End stage renal disease; E11.22 Type 2 diabetes mellitus with diabetic chronic kidney disease; I48.91 Unspecified atrial fibrillation; K21.9 Gastro-esophageal reflux disease without esophagitis; Z85.3 Personal history of malignant neoplasm of breast; Z99.2 Dependence on renal dialysis; Z83.3 Family history of diabetes mellitus; Z98.890 Other specified postprocedural states; Z88.8 Allergy status to other drugs, medicaments and biological substances; Z79.899 Other long term (current) drug therapy; Z79.82 Long term (current) use of aspirin; Z87.891 Personal history of nicotine dependence; Z87.01 Personal history of pneumonia (recurrent); Z90.49 Acquired absence of other specified parts of digestive tract; Z86.73 Personal history of transient ischemic attack (TIA), and cerebral infarction without residual deficits
CPT/HCPCS: 36415; 37228; 76937; 80048; 84132; 85027; 85610; 85730; C1725; C1760; C1769; C1887; C2623; J0690; J1644; J2250; J2704; J3490; J7030; J7121; J3010; Q9967